=== PATIENT | male | born 1955 | race Caucasian/White ===

== ENCOUNTER → 2017-06-23 | Outpatient (CLI) | payer OTHER, BC ==
[~2017-06-23] MED LIST: ASPI81TA21 PO; GADAVIST IV PRN; LSN20 PO; PRVC/40 PO
--- NOTE | 2017-06-23 11:00 | DIAGNOSTIC IMAGING REPORT ---
FLUOROSCOPIC-GUIDED LEFT SHOULDER ARTHROGRAM PRE-MRI CLINICAL HISTORY: Left shoulder pain COMPARISON STUDY: Conventional radiographic study dated 02/15/2014 FINDINGS: A timeout was performed. The risks the procedure were explained the patient informed consent was obtained. The patient was prepped and draped in sterile fashion. The skin was anesthetized 1% lidocaine. Under fluoroscopic guidance, 22-gauge spinal needle was introduced into the joint capsule. A mixture of Optiray 300 and lidocaine was instilled into the joint. Contrast entered the subacromial bursa indicative of a full-thickness rotator cuff tear. The patient was sent to the MRI suite for further evaluation. 17 seconds of fluoroscopic time was utilized. A single fluoroscopic spot image was acquired. IMPRESSION: 1. Successful fluoroscopically guided left shoulder arthrogram pre-MRI 2. Full-thickness rotator cuff tear Electronically signed by: Neville Bravo M.D. 06/23/2017 10:59 AM Dictated Date/Time: 06/23/2017 10:57 AM
--- NOTE | 2017-06-23 11:30 | DIAGNOSTIC IMAGING REPORT ---
L UPPER EXT JOINT WITH CLINICAL HISTORY: SHOULDER PAIN pain TECHNIQUE: Multi axial MRI acquisition post shoulder arthrography COMPARISON STUDY: None FINDINGS: Findings of considerable degenerative change of the acromioclavicular joint. Inferior osteophytic formation from the distal clavicle as well as inferior acromion. Considerable degenerative change lateral aspect humeral head. Slight superior migration of the humeral head in relation to the glenoid. There is a full-thickness tear of the supraspinatus tendon with evidence for musculotendinous retraction. This retraction is 3 cm. Findings of mild infraspinatus as well as subscapularis tendinitis. Small partial tear superior subscapularis tendon. No evidence for full-thickness tear. Biceps tendon is displaced somewhat medially in reference to the bicipital groove at its superior extent. The glenoid labrum is intact. IMPRESSION: 1. Full-thickness tear supraspinatus tendon with 3 cm of musculotendinous retraction. 2. Degenerative and hypertrophic change of the acromioclavicular and acromion with moderate inferior osteophytic formation. This most likely created a component of impingement with an intact supraspinatus tendon. 3. Moderate subscapularis and infraspinatus tendinitis with a small partial tear of the superior subscapularis margin. 4. Considerable degenerative change lateral aspect humeral head. 5. Partial medial subluxation of the biceps tendon in relation to the bicipital groove. The above report was generated using voice recognition software. It may contain grammatical, syntax or spelling errors. Electronically signed by: Brent Bourgeois M.D. 06/23/2017 11:28 AM Dictated Date/Time: 06/23/2017 11:21 AM
== END | disposition home or self-care (01) ==
LOC: C.MRIBC 09:28
PROVIDERS: ATTEND Physician Assistant
DX: M25.512 Pain in left shoulder (principal)

== ENCOUNTER → 2017-07-18 | Day surgery (SDC) | payer OTHER, BC ==
[2017-07-17 11:52] VITALS: Ht 188 cm; Wt 88.6 kg
[~2017-07-18] VITALS: Ht 188 cm; Wt 88.6 kg
[~2017-07-18] MED LIST changes: +ASPI-319 PO; -ASPI81TA21 PO; +ATROPINE SULFATE 0.1 MG/ML 5ML SYR IV PRN; +CEFAZOLIN 2000MG IV PUSH 15 ML IV SCH; +DEXAMETHASONE SOD INJ 4 MG/ML VIAL ONE; +EpHEDrine SULFATE 50MG/5ML SYR ONE; +EpHEDrine SULFATE INJ 50 MG/ML AMP IV PRN; +EpINEphrine INJ 1MG/ML AMP 1 MG/ML AMP ONE; +FENTANYL CITRATE INJ 50 MCG/1 ML 2 ML VIAL IV PRN; +FENTANYL CITRATE INJ 50 MCG/1 ML 2 ML VIAL ONE; -GADAVIST IV PRN; +KETOROLAC TROMETHAMINE 30 MG/ML VIAL IV. PRN; +LACTATED RINGER'S 1000ML 1,000 ML IV SCH; +LEVOFLOXACIN 500 MG TAB ONE; +LEVOFLOXACIN 500 MG TAB PO SCH; +LIDOCAINE HCL 2% 2 ML VIAL (20MG/ML) ONE; +MIDAZOLAM HCL 1 MG/ML 2ML VIAL ONE; +MULT-506 PO; +ONDANSETRON INJ 2 MG/ML 2 ML VIAL IV PRN; +ONDANSETRON INJ 2 MG/ML 2 ML VIAL ONE; +OXYCODONE/ACETAMINOPHEN 5-325 TAB PO PRN; +PROPOFOL IV EMULSION 10 MG/ML 20 ML VIAL IV ONE; +ROPIVACAINE 0.5% 5 MG/ML 30 ML VIAL ONE; +SODIUM CHLORIDE 0.9% 1000ML 1,000 ML IV SCH
--- NOTE | 2017-07-18 07:42 | History & Physical Bridge Note ---
H&P Re-Evaluation Bridge Note: I have examined the patient, reviewed the History & Physical and in the interval since the performance of the History & Physical I have noted the following changes of clinical significance:consent obtained. No changes noted
--- NOTE | 2017-07-18 07:43 | Discharge Instructions ---
Discharge Instructions Date of Service Jul 18, 2017. Visit Reason for Visit: Left Shoulder Rotator Cuff Tear Discharge Discharge Diagnosis / Problem: same Discharge Goals Goal(s): Decrease discomfort, Improve function, Increase independence Medications Stopped Medications Name(s): na Restart Stopped Medication(s): use scripts as directed. Activity Recommendations Activity Limitations: as noted below Lifting Limitations: until after follow-up appointment Exercise/Sports Limitations: until after follow-up appointment May Resume Sexual Activity: after follow-up appointment Shower/Bathe: keep incision dry Anesthesia . Post Anesthesia Instructions: If you have had General Anesthesia or IV Sedation: * Do not drive today. * Resume driving when surgeon permits. * Do not make important decisions or sign legal documents today. * Call surgeon for: 1. Temperature elevations greater than 101 degrees F. 2. Uncontrollable pain. 3. Excessive bleeding. 4. Persistent nausea and vomiting. 5. Medication intolerance (nausea, vomiting or rash). * For nausea and vomiting use only clear liquids such as: tea, soda, bouillon until nausea subsides, then gradually increase diet as tolerated. * If you have any concerns or questions, call your surgeon's office. If physician is unavailable and it is an emergency, call 911 or go to the nearest emergency room. . Instructions / Follow-Up Instructions / Follow-Up The following are instructions to follow after "Shoulder Surgery" including, Acromioplasty, Rotator Cuff Repair and Instability Surgery ACTIVITY RECOMMENDATIONS: * Minimize activity after surgery. * No excessive walking, jogging, sports or laboring. * Return to activity is individualized depending on the patient and type of surgery. * Driving is not permitted until at least your first post operative visit. Please ask your doctor when it is safe to resume driving. * Expect increased discomfort with increased activity. Continue to ice the shoulder as needed. SCHOOL/WORK RECOMMENDATIONS: * You may return to sedentary work or school when you are feeling more comfortable. This is usually 3-7 days after surgery. MEDICATIONS: * You will have a prescription for pain medication and an anti-inflammatory medication after surgery. * Use the pain medication for severe pain and the anti-inflammatory for less severe pain. Once the pain medication has run out, try to use the anti-inflammatory medication. If this is not effective, contact the office for assistance. * The pain medication may cause nausea, constipation and drowsiness. You should see how they affect you before driving or similar activity. * The anti-inflammatory medication may cause stomach upset and bleeding. If this occurs let your doctor know immediately . * Take a stool softener like Colace or a laxative like Senokot to prevent constipation. DIET: * Resume previous diet. SPECIAL CARE: ICE: You have the option of an ice cooler, gel packs or ice bags. * If you have an ice cooler, refer to the instructions for that device. The ice cooler may be used continuously. * If you do not have an ice cooler, you will need to use ice bags or gel packs. Do not apply ice directly to the skin. Use a thin dressing or neno shirt between the skin and ice bag. Apply ice for 20-30 minutes and repeat every 2-4 hours. This is especially important for the first 7-10 days after surgery. Once the pain improves, use ice as needed. ELEVATION: * You may be more comfortable sleeping in an upright position. Use the sling to elevate your arm. DRESSING: * Your dressing will be changed at your first therapy appointment approximately 4-5 days after surgery. Band-aids, tape strips or gauze may be applied. You may then change your dressing daily. * Reapply dressing followed by the EBIce cooling pad (if chosen) and then the sling. * Always wash your hands prior to touching the incision area. * Once the stitches are removed, you may leave the wound open to air or cover with gauze. * Expect some bloody drainage for the first few days after surgery. * Leave the tape strips, if present, in place for 5-7 days. * Band-aids and gauze may be changed daily. * There may be a gauze pad in your armpit area. This can be changed daily or replaced by a dry washcloth. SLING/BRACE: * You will need to use a sling or brace after surgery. The length of time the sling is used is dependent upon the type of surgery performed. * Arthroscopic Acromioplasty requires use of the sling for 2-4 weeks for comfort. * Labral procedures and Rotator Cuff Repairs require use of the sling for a longer period of time. Please check with your doctor prior to discontinuing the sling. BATHING: * You may shower or sponge-bathe immediately after surgery. The post operative shoulder dressing is mostly water-tight. You may shower right over this dressing, but be reasonably careful not to get the gauze or incision wet. * Once the dressing has been changed on the fourth or fifth day after surgery, you may shower and get the incision wet. * Wash with regular soap and water. * Do not bathe (submerge the incision), soak, swim or use a hot tub until the incision is completely healed over with normal skin and the doctor has given the OK to proceed. * There is no need to apply any ointments, powders or salves to your incision. * Do not apply alcohol or hydrogen peroxide directly to the incision. * Diluted peroxide (50:50 mixture with sterile saline) may be used to clean dried blood from around the incision area. THERAPY: * You will begin therapy four or five days after surgery. * Organized therapy with the therapist is important for the first 2-4 months after surgery depending on the type of procedure. During that time you will attend therapy 1-3 times per week. * You will also need to do daily exercises for range of motion and strength as instructed. * Patients who have a Capsular Shift Procedure will need to abide by temporary range of motion limitations. * Patients having Rotator Cuff Surgery are not allowed to actively lift their arms until 4-6 weeks after surgery. * Please check with your doctor regarding appropriate motion restrictions. FOLLOW UP VISIT: * If not already scheduled, please call the office at to schedule a follow-up appointment for 10 days after surgery and monthly thereafter. Diet Recommendations Recommended Home Diet: resume previous diet Procedures Procedures Performed: see op note Pending Studies Studies pending at discharge: no Medical Emergencies . Who to Call and When: Medical Emergencies: If at any time you feel your situation is an emergency, please call 911 immediately. . Non-Emergent Contact Non-Emergency issues call your: Specialist Call Non-Emergent contact if: temperature is above 101.5, wound has increased drainage, wound has increased redness, wound has increased pain . . "Provider Documentation" section prepared by Young Tapia. .
--- NOTE | 2017-07-18 10:29 | [facility] Post Operative Brief Note ---
Immediate Operative Summary Operative Date Jul 18, 2017. Pre-Operative Diagnosis Left Shoulder Masive Rotator Cuff Tear/biceps tendonopathy Post-Operative Diagnosis Same Procedure(s) Performed Left Shoulder Arthroscopy,Massive Rotator Cuff Repair, Biceps Tenotomy Surgeon Dr. Tapia Tiler'S Assistant Surgeon(s) Davin Rose PA-C Estimated Blood Loss Trace Findings Consistent with Post-Op Diagnosis Fluids (cc crystalloids) 900cc Specimens None Drains None Anesthesia Type General Regional Complication(s) none Disposition Accompanied Pt To Recovery: no Disposition: Recovery Room / PACU
--- NOTE | 2017-07-18 10:52 | [facility] Operative Report ---
Operative Report Operative Date Jul 18, 2017. Pre-Operative Diagnosis Left Shoulder Masive Rotator Cuff Tear/biceps tendonopathy Post-Operative Diagnosis Left shoulder same Procedure(s) Performed Left Shoulder Arthroscopy,Massive Rotator Cuff Repair, Biceps Tenotomy Surgeon Dr. Tapia Discovery Guide Surgeon(s) Davin Rose PA-C Estimated Blood Loss Trace Findings Left shoulder rotator cuff tear, biceps tendinopathy Fluids 900cc Specimens None Drains None Anesthesia Type General Regional Complication(s) none Disposition no Recovery Room / PACU Indications This 62-year-old white male presented to the office with complaints of left shoulder pain and loss of motion after injuring himself . Preoperative imaging was obtained. He elected to proceed with surgical intervention after being educated about potential risks and outcomes. Description of Procedure Patient was administered a regional block and then taken to the operating room where he was given general anesthesia. He was prepped and draped in usual sterile fashion. Please see Dr. Tapia's operative report for specifics of the procedure. I was present for the entire case from initial patient positioning through final wound closure. Assistance was provided in patient positioning, arthroscopy, anchor placement, and final wound closure. Patient was taken to the recovery room in satisfactory condition. I attest to the content of the Intraoperative Record and any orders documented therein. Any exceptions are noted below.
--- NOTE | 2017-07-18 11:05 | OPERATIVE REPORT ---
DATE OF OPERATION: 07/18/2017 SURGEON: Young Tapia MD DRILL OPERATOR: Larry Rose PA-C. No resident or fellow available. PREOPERATIVE DIAGNOSES: Massive rotator cuff tear, left upper extremity with chronic impingement syndrome, biceps tendinopathy. POSTOPERATIVE DIAGNOSES: Same. OPERATION PERFORMED: 1. Exam under anesthesia. 2. Diagnostic arthroscopy. 3. Arthroscopic biceps tenotomy. 4. Arthroscopic massive rotator cuff repair, double row technique. PERIOPERATIVE SITUATION: Medically cleared male with intractable shoulder pain and inability to lift his arm following an injury. Physical exam, x-ray and MRI scan consistent with acute on chronic changes. He has a massive cuff tear with retraction. Options were discussed with him. He wanted to proceed with surgery. In addition, he also had an option of superior capsule reconstruction if the tendon was not repairable. DESCRIPTION OF PROCEDURE: The patient appropriately identified, site verified, consent verified, 2 grams of Ancef confirmed as being given. The shoulder was examined revealing no instability. He was then carefully placed in a beach chair position and left upper extremity prepped and draped in usual routine fashion. A posterior portal made 2 cm medial and inferior to posterolateral tip of the acromion and anterior portal made just off the edge of the AC joint. The joint was entered. There was a massive cuff tear. The areas were debrided. The labrum was debrided. The biceps tendon was very tendinopathic and unstable what was released. This was the long head. The short head was left alone. The glenohumeral joint was relatively healthy. The subacromial space was then entered. The superficial bursa and the subacromial space was then debrided. The tendon was then identified and mobilized. Double row technique was utilized and just off the articular edge. Two 4.75 anchors with tapes were placed. They were placed percutaneously. They were then left in the holes. Additional anchors were then placed on the lateral footprint. These were 4.75 anchors. One stitch from each area was then placed. This repaired about 80% of the area. One of the centralizing stitches of 4.75 anchors was also used to augment the repair anteriorly. Once this was done, the scope was placed anteriorly and uncovered area anteriorly was noticed. As a result, another 4.75 anchor was placed. There were 2 loops sutures and this covered things nicely. A good repair was obtained with the arm at the side, slightly in the most medial aspect of the footprint. It did not leave any cartilage uncovered. The arm was then placed through range of motion, and there was no retraction of the cuff. The procedure was then terminated. All instruments and fluid removed. The 3 portals were closed as well as the percutaneous sites with nylon. The wound was then dressed appropriately with Xeroform, 4 x 4 gauze, ABD pads and Ioban dressing and a shoulder immobilizer was placed. Estimated blood loss was trace. Crystalloid 900 mL. No DVT prophylaxis. Overall prognosis for the shoulder is guarded based on the size of tear, chronicity of tear, and use of tobacco, etc. I attest to the content of the Intraoperative Record and any orders documented therein. Any exception s are noted below.
[2017-07-18 11:26] VITALS: TEMP 36.2
[2017-07-18 12:10] VITALS: BP 151/79; PULSE 68; O2SAT 95
--- NOTE | 2017-07-18 12:23 | Anesthesia Progress Nt - [facility] ---
Anesthesia Post Op Note Date & Time Jul 18, 2017 at 12:23 Vital Signs Pain Intensity: 0 Vital Signs Past 12 Hours Date Time Temp Pulse Resp B/P (MAP) Pulse Ox O2 Delivery O2 Flow Rate FiO2 07/18/17 12:10 68 18 151/79 (103) 95 Room Air 07/18/17 11:26 36.2 65 18 156/73 (100) 94 Room Air 07/18/17 11:16 155/88 07/18/17 11:14 70 24 07/18/17 11:14 36.4 67 20 155/88 94 Room Air 07/18/17 11:14 68 24 94 07/18/17 11:11 147/81 07/18/17 11:09 71 27 07/18/17 11:09 71 27 95 07/18/17 11:06 139/75 07/18/17 11:04 75 21 97 07/18/17 11:04 74 21 07/18/17 11:01 158/88 07/18/17 10:59 82 19 07/18/17 10:59 83 19 97 07/18/17 10:56 146/78 07/18/17 10:54 69 20 07/18/17 10:54 69 20 100 07/18/17 10:51 150/76 07/18/17 10:49 65 15 98 07/18/17 10:49 64 15 07/18/17 10:45 36.1 64 16 148/73 98 Mask 6 07/18/17 10:45 148/73 07/18/17 09:19 0 07/18/17 09:18 65 07/18/17 09:18 65 58 97 07/18/17 09:16 146/82 07/18/17 09:13 62 24 97 07/18/17 09:13 62 07/18/17 09:11 137/79 07/18/17 09:08 61 07/18/17 09:08 61 40 97 07/18/17 09:06 137/78 07/18/17 09:03 58 21 98 07/18/17 09:03 59 07/18/17 09:01 139/81 07/18/17 08:58 62 07/18/17 08:58 62 12 98 07/18/17 08:57 149/87 07/18/17 07:48 36.6 72 20 136/70 (92) 94 Room Air Notes Mental Status: alert / awake / arousable, participated in evaluation Pt Amnestic to Procedure: Yes Nausea / Vomiting: adequately controlled Pain: adequately controlled Airway Patency, RR, SpO2: stable & adequate BP & HR: stable & adequate Hydration State: stable & adequate Anesthetic Complications: no major complications apparent The patient was instructed to take his lisinopril when he goes home. He understands and agrees. He feels well on discharge with no complaints.
== END | disposition home or self-care (01) ==
LOC: X.SURG 07:34
PROVIDERS: ATTEND Physical Medicine & Rehabilitation Sports Medicine
DX: S46.012A Strain of muscle(s) and tendon(s) of the rotator cuff of left shoulder, initial encounter (principal); X58.XXXA Exposure to other specified factors, initial encounter; M75.42 Impingement syndrome of left shoulder; M75.22 Bicipital tendinitis, left shoulder; Z79.82 Long term (current) use of aspirin; Z79.899 Other long term (current) drug therapy; I10 Essential (primary) hypertension

== ENCOUNTER 2018-10-21 09:06 | Inpatient (IN) ==
[2018-10-21] MEDS ORDERED: HYDROmorphone INJ 1 MG/ML SYRINGE IV PRN (09:30)
[2018-10-21] MEDS ORDERED: ONDANSETRON INJ 2 MG/ML 2 ML VIAL IV STA (09:30)
[2018-10-21] MEDS ORDERED: KETOROLAC (**for OR use only**) 30 MG/ML VIAL IV ONE (09:30)
[2018-10-21 09:35] LABS: Hematocrit (blood only) 47.5 % (42-52); Hemoglobin 17.6 g/dL (14.0-18.0); Immature Granulocytes # (auto) 0.03 K/uL (0.00-0.02); Immature Granulocytes % (auto) 0.2 %; Lymphocytes # (auto) 1.44 K/uL (1.2-3.4); Lymphocytes % (auto) 10.6 %; Mean Corpuscular Hgb Conc 37.1 g/dL (32-36); Mean Corpuscular Volume 90.6 fL (80-100); Mean Platelet Volume 9.5 fL (7.4-10.4); Monocytes # (auto) 0.47 K/uL (0.11-0.59); Monocytes % (auto) 3.5 %; Neutrophils # (auto) 11.65 K/uL (1.4-6.5); Neutrophils % (auto) 85.7 %; Platelet Count 210 K/uL (130-400); RDW Coefficient of Variation 12.9 % (11.5-14.5); RDW Standard Deviation 42.8 fL (36.4-46.3); Red Blood Count 5.24 M/uL (4.7-6.1); White Blood Count 13.59 K/uL (4.8-10.8)
[2018-10-21] MEDS ORDERED: KETOROLAC 30 MG/ML VIAL ONE (09:37)
[2018-10-21 09:41] LABS: BUN Creatinine Ratio 25.8 (10-20); Blood Urea Nitrogen 25 mg/dl (7-18); Carbon Dioxide 24 mmol/L (21-32); Chloride 104 mmol/L (98-107); Est GFR (African American) 95.8; Est GFR (Non-African American) 82.6; Glucose 124 mg/dl (70-99); Sodium 136 mmol/L (136-145)
--- NOTE | 2018-10-21 11:23 | Magnetic Resonance Report ---
LUMBAR SPINE MRI HISTORY: Pt c/o low back pain TECHNIQUE: Multiplanar multisequence MRI of the lumbar spine was performed without the use of contras t. COMPARISON: None. FINDINGS: For the purpose of the report the L5-S1 disc space will be located on axial image 23 of 25. No fracture or subluxation. The conus terminates at the L1 level. Mild facet degenerative changes thr oughout the lumbar spine. 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 Mild edema within the distal l eft erector spinae muscles at the L5-S1 level. This could be due to the adjacent facet degenerative c hange or a muscular strain. Small focus of edema within the posterior superior endplate of L4 and L5. This is likely due to the adjacent degenerative change. L1-L2: No significant central canal or neural foraminal narrowing. L2-L3: No significant central canal or neural foraminal narrowing. L3-L4: There is a small central focal central disc protrusion demonstrating mild inferior subligament ous migration. This does not result in significant central canal or neural foraminal narrowing. L4-L5: Small focal central annular tear without significant central canal or neural foraminal narrowi ng. L5-S1: There is a central/left paracentral focal disc protrusion which abuts and slightly displaces t he transiting left S1 nerve root. This may also abut but does not displace the transiting right S1 ne rve root. This measures 16 x 6 mm. No significant central canal narrowing. There is mild left-sided n eural foraminal narrowing. IMPRESSION: 1. A small to moderate central/left paracentral focal disc protrusion at L5-S1 which abuts the bilate ral transiting S1 nerve roots and slightly displaces the left S1 nerve root. 2. Small annular tears/protrusions also seen at L3-L4 and L4-L5 without significant central canal or neural foraminal narrowing. Electronically signed by: Teofilo Overton M.D. 10/21/2018 11:22 AM
[2018-10-21] MEDS ORDERED: MoRPHine SULFATE 4 MG/ML 1 ML CARP\\VIAL IV PRN (12:32)
--- NOTE | 2018-10-21 12:42 | XRay Report ---
SINGLE VIEW CHEST CLINICAL HISTORY: Low back pain. FINDINGS: 2 AP, portable, upright chest radiographs are compared to study dated 10/26/2012. The examina tion is degraded by portable technique and patient rotation. The heart is enlarged and there is ath erosclerotic calcification of the thoracic aorta. The pulmonary vasculature is noncongested. The lung s and pleural spaces are clear. No pneumothorax is seen. The skeletal structures are osteopenic. The bony thorax is grossly intact. Atherosclerotic calcification is noted in the carotid bulbs. IMPRESSION: Cardiomegaly with no active disease in the chest. Electronically signed by: Eh Lincoln M.D. 10/21/2018 12:41 PM
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
[2018-10-21] MEDS ORDERED: ACETAMINOPHEN 325 MG TAB PO PRN (13:37)
[2018-10-21] MEDS ORDERED: ONDANSETRON INJ 2 MG/ML 2 ML VIAL IV PRN (13:37)
[2018-10-21] MEDS ORDERED: POLYETHYLENE (MIRALAX) 17 GM PACK PO PRN (13:37)
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
[2018-10-21] MEDS: AMITRIPTYLINE HCL 25 MG TAB PO SCH (20:17)
[2018-10-22 07:08] LABS: Prothrombin Time 10.5 Seconds (9.0-12.0)
[2018-10-22 07:29] LABS: Albumin Level 3.3 gm/dl (3.4-5.0); BUN Creatinine Ratio 33.3 (10-20); Calcium 8.5 mg/dl (8.5-10.1); Creatinine Clr Calc Pharmacy 98.4 ml/min; Est GFR (Non-African American) 90.6; Potassium 3.8 mmol/L (3.5-5.1)
[2018-10-22 07:32] LABS: Albumin Globulin Ratio 1.1 (0.9-2); Globulin 3.1 gm/dl (2.5-4.0); Total Protein 6.4 gm/dl (6.4-8.2)
[2018-10-22] MEDS ORDERED: TRAMADOL HCL 50 MG TABLET PO PRN (08:14)
[2018-10-22] MEDS ORDERED: methylPREDNISolone 4 MG TAB, 6 DAY TAPER PO SCH (08:15)
[2018-10-22] MEDS: LISINOPRIL 20 MG TAB PO SCH (08:52)
[2018-10-22] MEDS: hydroCHLOROthiazide 25 MG TAB PO SCH (08:52)
[2018-10-22] MEDS: methylPREDNISolone 4 MG TAB PO SCH ×4 (09:44→21:08)
[2018-10-22] MEDS: BACLOFEN 10 MG TAB PO SCH ×3 (09:44→21:09)
[2018-10-22] MEDS: KETOROLAC TROMETHAMINE 15 MG/ML VIAL IV SCH ×4 (09:45→21:10)
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
[2018-10-22] MEDS: PRAVASTATIN SOD 40 MG TAB PO SCH (10:27)
--- NOTE | 2018-10-22 10:59 | Consultation Report ---
DATE OF CONSULTATION: 10/22/2018 CHIEF COMPLAINT: Back and lower extremity difficulty. Working diagnosis of herniated disc lumbar spine at L5-S1, which I think is appropriate diagnosis. The modifier would be the fact that it is a fairly small disc herniation at L5-S1. HISTORY OF PRESENT ILLNESS: He came to the Emergency Room yesterday, intractable pain evidently was quite miserable. He was graciously admitted to the medical service. I am seeing him in consultation and I have also consulted pain management. PAST MEDICAL HISTORY: Positive for degenerative joint disease, arthritis, hernia, hypertension, hyperlipidemia. PAST SURGICAL HISTORY: Rotator cuff surgery, hernia repair. ALLERGIES: Negative. FAMILY HISTORY: Father and mother , brothers are healthy. MEDICATIONS: Include Lipitor, aspirin, hydrochlorothiazide, lisinopril. SOCIAL HISTORY: No alcohol. 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 Moderate tobacco, mostly cigars. REVIEW OF SYSTEMS: He denies any blurred vision, double vision, tinnitus or vertigo. Denies any chest pain, palpitations. Denies nausea, vomiting or bowel and bladder incontinence. OBJECTIVE: GENERAL: He is alert, oriented, pleasant, communicative. VITAL SIGNS: Temperature of 36.4, pulse regular at 60, respiratory rate 16, blood pressure slightly elevated, pulse ox 96. Electrolytes appropriate. He is alert, oriented x3. He is in no pain this morning at 7:15 a.m. HEENT: Pupils react to light and accommodation. Ear, nose and throat clear. CHEST: Normal S1, S2. LUNGS: Clear. ABDOMEN: Soft, nontender. MUSCULOSKELETAL: I did not range his lumbar spine. I kept him at bed rest. He has minimal pain at rest here to this morning. NEUROLOGIC: Cranial nerves intact. Facial nerve roots intact, 5/5 motor strength to lower extremities and upper extremities. No deficit. He has minimal pain with straight leg raising, but some on the left hand side, but mild. He has adequate flexion, extension of the hips and knees. Again, no deficit. No atrophy. IMAGES: Reviewed. IMPRESSION: He has a small disc herniation at L5-S1, left. PLAN: I would treat this at least initially with conservative measures. This is a highly likelihood of improving with conservative means, rather than surgical means. It can be argued either way of course. I put an order in for pain management, hopefully they can help the patient out in the short run. I would recommend a combination of some steroids, some Toradol, some gabapentin or narcotics, possibly outpatient injections and hopefully get this quieted down. I anticipate the patient being here for 24-48 hours.
--- NOTE | 2018-10-22 14:55 | Progress Note ---
DATE: 10/22/2018 SUBJECTIVE: He is alert, oriented, seen on rounds this afternoon approximately 2:20 p.m. He is alert, oriented, minimal complaints of pain, up ambulatory. No neurological deficit. He does complain of some significant constipation which has been more concerned and the possibility of left inguinal hernia. ASSESSMENT: Disc herniation, lumbar spine, L5-S1, mild, left-sided inguinal hernia and constipation. PLAN: From an orthopedic spinal standpoint, he is stable for discharge. I would like to get his constipation little more under control. He has seen pain management as an outpatient and I need to see him back in the office in approximately 3-4 weeks.
--- NOTE | 2018-10-22 18:02 | Hospitalist Progress Note ---
Date of Service October 22, 2018 Assessment & Plan (1) Herniated lumbar disc without myelopathy: MRI shows herniated nucleus pulposus at L5-S1 Appreciate input from orthopedics Given conservative management, Pain management consulted, appreciate input Medication adjusted, added as needed muscle relaxant PT OT (2) Intractable low back pain: due to above Pain improved after adjustment of meds, continue to monitor (3) Leukocytosis: Secondary to recent steroid treatment for intractable back pain Chills no sign of infection, will follow CBC (4) HLD (hyperlipidemia): Continue statin (5) HTN (hypertension): BP stable, CODE STATUS: Full code DVT prophylaxis: SCD and teds, early ambulation Disposition: Continue PT OT Depending on patient's functional status improvement possible discharge home with home PT versus rehab Social service consulted for discharge planning Subjective Does not have any back pain when lying in bed, Pain and discomfort with attempting to sit up and walk to the bathroom Follow-up bladder incontinence, no radiation pain Patient input from orthopedics, referral made to pain management Started with Flexeril, pain regimen adjusted Continue PT Physical Exam Physical Exam: GENERAL: No sign of distress, HEENT: Sclera nonicteric, pink-purple bilateral equal reactive to light extraocular muscle intact Normal oral mucosa, neck: No JVD, no thyromegaly, trachea midline Lungs: Clear to auscultate, no wheeze or rales Cardiovascular: Regular S1 and S2, no murmur or gallop, no JVD, no lower extremity edema Abdomen: Soft, nontender, bowel sounds active, no hepatosplenomegaly Extremities: Does not have any weakness, no radiation pain, no hip or joint pain Neuro: No focal neurological deficit, no dysarthria, no facial droop Psych: Alert awake oriented x3: Euthymic Skin: No rash LYMPH NODES: No cervical lymphadenopathy Results & Data Vital Signs (Past 12 Hours) Vital Signs Temp Pulse Pulse Resp BP Pulse Ox 10/22/18 15:04 36.8 C 56 L 18 141/82 H 94 10/22/18 07:56 36.4 C L 52 L 16 162/80 H 92 (1) Leukocytosis Leukocytosis type: unspecified Qualified Code(s): D72.829 - Elevated white b lood cell count, unspecified (2) HTN (hypertension) Hypertension type: unspecified Qualified Code(s): I10 - Essential (primary) hypertension
[2018-10-22] MEDS: AMITRIPTYLINE HCL 25 MG TAB PO SCH (21:08)
[2018-10-23] MEDS: KETOROLAC TROMETHAMINE 15 MG/ML VIAL IV SCH ×2 (03:12→08:57)
[2018-10-23] MEDS ORDERED: methylPREDNISolone 4 MG TAB PO SCH ×2 (07:00→21:00)
[2018-10-23] MEDS: PRAVASTATIN SOD 40 MG TAB PO SCH (08:56)
[2018-10-23] MEDS: hydroCHLOROthiazide 25 MG TAB PO SCH (08:56)
[2018-10-23] MEDS: BACLOFEN 10 MG TAB PO SCH (08:56)
[2018-10-23] MEDS: LISINOPRIL 20 MG TAB PO SCH (08:56)
--- NOTE | 2018-10-23 09:37 | Pain Management Progress Note ---
Date of Service October 23, 2018 Assessment & Plan (1) Myofascial pain: Present on Admission?: Yes (2) Herniated lumbar disc without myelopathy: 1. Patient will continue with current medication regimen without change in recommendations 2. Recommend patient participate in outpatient PT upon discharge 3. We again discussed trigger point injection, but he currently defers due to symptomatic improvement. 4. We again discussed avoidance of offending activities and the importance of participating in PT 5. Patient may follow-up in the outpatient pain clinic with persisting or recurrent symptoms and he verbalized understanding. Will sign off on patient at this time. Thank you for allowing us to participate in the care of Mr. Ordonez. Present on Admission?: Yes Subjective Mr. Ordonez is reporting a significant improvement in the frequency and severity of axial low back pain over the past 24 hours. He is reporting improved ability to move with less pain and discomfort. Reports an occasional sharp, shooting and stabbing pain with certain movements. He was out of bed multiple times yesterday and did participate in physical therapy with walking with a walker. He continues to deny radicular or radiating pain in the lower extremities. Patient is rating his pain at a 0/10 in the supine position, ranging between a 0-2/10 with movement. Patient is eager to be discharged home at this time. Patient has no further constitutional complaints. Plan of care discussed with Dr. Suarez. Pain Assessment Pain Assessment Full Body Front + Back: 1. Left lower lumbar paravertebral Pain scale - at its best (0-10): 0 Pain scale - at its worst (0-10): 2 Physical Exam Physical Exam: General: Patient sleeping upon entering. He was awakened. Speech and thought process appropriate. Mood and affect appropriate. Cognition intact. Back/spine: Patient able to sit up without limitation and no assistance. Minimal exacerbation of discomfort. Nontender over the midline. No focal facet joint tenderness. Minimally tender in the left lower lumbar paravertebral/erector spinae musculature to palpation. Minimal residual myoneural trigger point evidenced on examination. Lower extremity: SLR negative bilaterally. Strength testing 5/5 and equal. Sensation intact without deficits. No significant guarding on today's ex amination. Neurologic: Cranial nerves grossly intact. Ambulation not witnessed.
--- NOTE | 2018-10-23 16:58 | Hospitalist Progress Note ---
Date of Service October 23, 2018 Assessment & Plan (1) Herniated lumbar disc without myelopathy: MRI shows herniated nucleus pulposus at L5-S1 Appreciate input from orthopedics Given conservative management, Pain management consulted, appreciate input Medication adjusted, added as needed muscle relaxant back pain improved significantly with no limitation with movement stable to be discharged home today (2) Intractable low back pain: due to above Pain improved after adjustment of meds, pain denies of any limitation of movement pain 0/10 on back , stable to be dischaged home will be followed with pain management in clinic as needed (3) Leukocytosis: Secondary to recent steroid treatment for intractable back pain Chills no sign of infection, WBC normalized (4) HLD (hyperlipidemia): Continue statin (5) HTN (hypertension): BP stable, CODE STATUS: Full code DVT prophylaxis: SCD and teds, early ambulation Disposition: stable to be discharged home Subjective Mr. Ordonez is reporting a significant improvement in the frequency and severity of axial low back pain over the past 24 hours. He is reporting improved ability to move with less pain and discomfort. Reports an occasional sharp, shooting and stabbing pain with certain movements. He was out of bed multiple times yesterday and did participate in physical therapy with walking with a walker. He continues to deny radicular or radiating pain in the lower extremities. Patient is rating his pain at a 0/10 in the supine position, ranging between a 0-2/10 with movement. Patient is eager to be discharged home at this time. Patient has no further constitutional complaints. Physical Exam Physical Exam: GENERAL: No sign of distress, HEENT: Sclera nonicteric, pink-purple bilateral equal reactive to light extraocular muscle intact Normal oral mucosa, neck: No JVD, no thyromegaly, trachea midline Lungs: Clear to auscultate, no wheeze or rales Cardiovascular: Regular S1 and S2, no murmur or gallop, no JVD, no lower extremity edema Abdomen: Soft, nontender, bowel sounds active, no hepatosplenomegaly Extremities: No rash or deformity, normal joint, Neuro: No focal neurological deficit, no dysarthria, no facial droop Psych: Alert awake oriented x3: Euthymic Skin: No rash LYMPH NODES: No cervical lymphadenopathy Results & Data Vital Signs (Past 12 Hours) Vital Signs Temp Pulse Pulse Resp BP Pulse Ox 10/23/18 10:39 36.5 C 52 L 45 L 17 171/83 H 95 10/23/18 07:14 36.5 C 45 L 17 171/83 H 95 (1) Leukocytosis Leukocytosis type: unspecified Qualified Code(s): D72.829 - Elevated white blood cell count, unspecified (2) HTN (hypertension) Hypertension type: unspecified Qualified Code(s): I10 - Essential (primary) hypertension
[2018-10-24] MEDS ORDERED: methylPREDNISolone 4 MG TAB PO SCH (07:00)
[2018-10-25] MEDS ORDERED: methylPREDNISolone 4 MG TAB PO SCH (07:00)
[2018-10-26] MEDS ORDERED: methylPREDNISolone 4 MG TAB PO SCH (07:00)
[2018-10-27] MEDS ORDERED: methylPREDNISolone 4 MG TAB PO SCH (07:00)
--- NOTE | 2018-10-30 22:00 | Discharge Summary ---
Date of Service 10/23/2018 Admission HPI Per Admitting Provider History of Present Illness 63-year-old male with a past medical history of degenerative joint disease, osteoarthritis, ventral hernia, hypertension, and hyperlipidemia presents the emergency room today after 2 falls at home where he could not get up secondary to severe back pain. An MRI showed a herniated nucleus pulposus L5-S1 and he will be seen by orthopedics. He denies any radiation of the pain down into his legs. 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 Primary Care Provider: Brent Holm MD Principal Diagnosis BACK PAIN /HERNIATED LUMBER DISC Discharge Data Allergies Allergy/AdvReac Type Severity Reaction Status Date / Time No Known Allergies Allergy Mild Unverified 07/18/17 07:44 Consultations 10/21/18 12:12 ED Decision to Admit Stat 10/21/18 17:45 Consult Orthopedic Surgery Routine 10/22/18 07:07 Consult Pain Management Routine Ordered Studies 10/21/18 09:27 MR lumbar spine wo con Stat Hospital Course (1) Herniated lumbar disc without myelopathy: MRI shows herniated nucleus pulposus at L5-S1 Appreciate input from orthopedics Given conservative management, Pain management consulted, appreciate input Medication adjusted, added as needed muscle relaxant back pain improved significantly with no limitation with movement stable to be discharged home today (2) Intractable low back pain: due to above Pain improved after adjustment of meds, pain denies of any limitation of movement pain 0/10 on back , stable to be dischaged home will be followed with pain management in clinic as needed (3) Leukocytosis: Secondary to recent steroid treatment for intractable back pain Chills no sign of infection, WBC normalized (4) HLD (hyperlipidemia): Continue statin (5) HTN (hypertension): BP stable, CODE STATUS: Full code DVT prophylaxis: SCD and teds, early ambulation Disposition: stable to be discharged home Total Time Total Time Spent Total Time Spent (In Minutes): approx 40 mins Total Time Includes: Examination of the Patient, Discharge Planning and Medication Reconciliation Discharge Plan Discharge Items Patient Disposition: Home - Self-Care Reason For Visit: HERNIATED L5S1 DISK, BACK PAIN Discharge Diagnosis: Back pain/herniated lumbar disc Discharge Goals: Decrease discomfort and Therapeutic intervention Activity: As commented below Activity Comment: As tolerated Lifting: Gradually increase as tolerated and No more than 5 pounds Lifting Comment: For 1 week Non-emergency contact: Primary Care Provider Call non-emergency contact if: you have any medication questions, your symptoms worsen and your wound has increased drainage Follow-up/Referrals: John Suarez MD, FIPP [Anesthesiologist] - (please call office for appointment ) Brent Holm MD [Primary Care Provider] - 10/26/18 1:55 pm Junior Munoz DO [Surgeon] - (in 3-4 weeks ) Diet: Regular Addtl Provider Instructions: Hospital follow-up with Dr. Holm on October 26, 2018 at 1:55 PM NEW MEDICATIONS : 1.COMPLETE MEDROL DOSEPAK (TAKE WITH FOOD) 2.MAY TAKE TRAMADOL 50 MG EVERY 8 HOURS NEEDED FOR BREAKTHROUGH PAIN (PLEASE TAKE STOOL SOFTENER: COLACE/MIRALAX TO PREVENT CONSTIPATION CAUSED BY PAIN MEDICATION ) can take over the counter Motrin /Aleve as needed for moderate pain ( take with food ) alternate between heat and cold compression for pain relief 3.TAKE BACLOFEN (MUSCLE RELAXANT (10 MG / 1 TABLET 3 TIMES DAILY CONTINUE PHYSICAL THERAPY AN OUTPATIENT PAIN MANAGEMENT CLINIC FOLLOW-UP WITH DR SUAREZ IN 4 TO 6 WEEKS OR EARLIER IF NEEDED FOR RECURRENCE OF PAIN: YOU MAY GET BENEFIT WITH A TRIGGER POINT injection. ORTHOPEDICS FOLLOW-UP WITH DR. MUNOZ IN APPROXIMATELY 3-4 WEEKS PLEASE CALL OFFICE TO SCHEDULE APPOINTMENT Prescriptions: New baclofen 10 mg Tablet 10 mg PO TID 30 Days Qty: 90 RF: 0 tramadol 50 mg Tablet 50 mg PO Q8 PRN (Reason: PAIN) Qty: 10 RF: 0 methylprednisolone [Medrol (Brennan)] 4 mg tablets,dose pack 4 mg PO UD Qty: 21 RF: 0 Continued pravastatin 40 mg Tablet 40 mg PO DAILY RF: 0 lisinopril 20 mg Tablet 20 mg PO DAILY RF: 0 aspirin [Aspirin Low Dose] 81 mg Tablet,Delayed Release (Dr/Ec) 81 mg PO DAILY RF: 0 Stand-Alone Forms: [employer], Opioid Pain Management Jose/Other Patient Handouts: Tips Cardiovascular Quit Smoking, Quit Smoking Plan, Quit Smoking Get Support, Smoking Health Effects, Smoke Free Benefits Discharge Orders: Discharge Order (Routine); Ordered 10/23/18 Ordered By: Rachel Noriega Admission Data Admit Date/Time: 10/21/18 12:31 Attending Provider: Rachel Noriega Admit Provider: Rachel Noriega Primary Care Provider: Brent Holm Other Providers: Junior Munoz Upendra Service: Medical Other Interventions: Discharge Summary Assessment (RN) Last Done: 10/23/18 10:39 DC Date/Time DO NOT enter until pt leaves facility: 10/23/18 12:22
== END 2018-10-23 12:22 | disposition home or self-care (01) | DRG 552 ==
LOC: ED 09:06 → 3W 12:31
DX: M19.90 Unspecified osteoarthritis, unspecified site; I10 Essential (primary) hypertension; K40.90 Unilateral inguinal hernia, without obstruction or gangrene, not specified as recurrent; F17.290 Nicotine dependence, other tobacco product, uncomplicated; M79.18 Myalgia, other site; K59.00 Constipation, unspecified; Z79.899 Other long term (current) drug therapy; T38.0X5A Adverse effect of glucocorticoids and synthetic analogues, initial encounter; E78.5 Hyperlipidemia, unspecified; M51.27 Other intervertebral disc displacement, lumbosacral region; D72.829 Elevated white blood cell count, unspecified; Z79.82 Long term (current) use of aspirin

== ENCOUNTER 2022-11-13 22:52 | Inpatient (IN) ==
[2022-11-13 23:46] LABS: Basophils # (auto) 0.03 K/uL (0-0.2); Basophils % (auto) 0.3 %; Eosinophils # (auto) 0.08 K/uL (0-0.50); Eosinophils % (auto) 0.7 %; Hematocrit (blood only) 42.7 % (42.0-52.0); Hemoglobin 15.3 g/dl (14.0-18.0); Immature Granulocytes # (auto) 0.03 K/uL (0.01-0.20); Immature Granulocytes % (auto) 0.3 %; Lymphocytes # (auto) 2.67 K/uL (1.2-3.4); Lymphocytes % (auto) 24.5 %; Mean Corpuscular Hemoglobin 31.9 pg (25.0-34.0); Mean Corpuscular Hgb Conc 35.8 g/dL (32.0-36.0); Mean Corpuscular Volume 89.1 fL (80.0-100.0); Mean Platelet Volume 9.6 fL (9.4-12.4); Monocytes # (auto) 0.61 K/uL (0.11-0.59); Monocytes % (auto) 5.6 %; Neutrophils # (auto) 7.48 K/uL (1.40-6.50); Neutrophils % (auto) 68.6 %; Platelet Count 180 K/uL (130-400); RDW Coefficient of Variation 12.9 % (11.5-14.5); RDW Standard Deviation 42.3 fL (36.4-46.3); Red Blood Count 4.79 M/uL (4.70-6.10)
[2022-11-13 23:58] LABS: Albumin Globulin Ratio 1.4 (0.9-2); Albumin Level 4.2 gm/dl (3.4-5.0); BUN Creatinine Ratio 13.9 (10-20); Bilirubin,Total 1.3 mg/dl (0.2-1.0); Calcium 9.5 mg/dl (8.6-10.3); Creatinine Clr Calc Pharmacy 75.1 ml/min; Est GFR (African American) 80.7 ml/min; Est GFR (Non-African American) 69.7 ml/min; Total Protein 7.2 gm/dl (6.0-8.3)
[2022-11-14] MEDS ORDERED: ONDANSETRON INJ 2 MG/ML 2 ML VIAL ONE (00:10)
[2022-11-14] MEDS ORDERED: FAMOTIDINE 20MG IV PUSH 20 MG/5 ML SYR IV STA (00:37)
[2022-11-14] MEDS ORDERED: ACETAMINOPHEN 1,000 MG/100 ML VIAL IV STA (00:37)
[2022-11-14] MEDS: SODIUM CHLORIDE 0.9% 1000ML 1,000 ML IV SCH ×2 (00:55→16:33)
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
[2022-11-14] MEDS ORDERED: MoRPHine SULFATE 2 MG/ML CARP IV STA (02:34)
--- NOTE | 2022-11-14 03:52 | Ultrasound Report ---
Exam(s): US ABDOMEN LIMITED EXAM: US Abdomen Limited, Right Upper Quadrant CLINICAL HISTORY: Epigastric pain. TECHNIQUE: Real-time ultrasound of the right upper quadrant with image documentation. COMPARISON: No relevant prior studies available. FINDINGS: Liver: The liver measures 16.2 cm. There is increase echogenicity of the liver parenchyma. No mass. No intrahepatic bile duct dilation. Gallbladder: Unremarkable. No gallstones. Common bile duct: The common bile duct is normal measuring 0.4 cm. No stones. No dilation. Pancreas: The pancreas is not well visualized due to overlying bowel gas. Right kidney: The right kidney measures 9.7 cm. No stones. No hydronephrosis. IMPRESSION: Fatty infiltration of the liver. Electronically signed by: Courtney Ortega MD 11/14/22 03:51 AM
[2022-11-14 04:01] LABS: Appearance Urine Clear (Clear); Bilirubin Urine Negative (Negative); Blood Urine Negative (Negative); Color Urine Dark Yellow; Glucose Urine UA Negative (Negative); Ketones Urine Trace (Negative); Leukocyte Esterase Urine Negative (Negative); Nitrite Urine Negative (Negative); Protein Urine Negative (Negative); Specific Gravity Urine 1.026 (1.000-1.030); Urobilinogen Urine Negative (Negative); pH Urine 7.5 (4.5-7.5)
[2022-11-14] MEDS ORDERED: OPTIRAY 320 100ml IV ONE (04:01)
[2022-11-14] MEDS ORDERED: ONDANSETRON INJ 2 MG/ML 2 ML VIAL IV STA ×2 (04:10→05:32)
[2022-11-14] MEDS ORDERED: MoRPHine SULFATE 4 MG/ML 1 ML CARP\\VIAL IV STA (04:10)
--- NOTE | 2022-11-14 04:54 | CT Scan Report ---
Exam(s): CT ABDOMEN + PELVIS With Contrast IV Amt: 93 ML OPTIRAY 320 EXAM: CT Abdomen and Pelvis With Intravenous Contrast CLINICAL HISTORY: Abdominal pain. TECHNIQUE: Axial computed tomography images of the abdomen and pelvis with intravenous contrast. Automated exposure control was utilized for the study. A dose lowering technique was utilized adhering to the principles of ALARA. CONTRAST: Patient received 93 ML OPTIRAY 320 of IV contrast COMPARISON: Abdominal ultrasound 11/14/2022. FINDINGS: Lung bases: Unremarkable. No mass. No consolidation. ABDOMEN: Liver: Unremarkable. No mass. Gallbladder and bile ducts: Unremarkable. No calcified stones. No ductal dilation. Pancreas: Unremarkable. No mass. No ductal dilation. Spleen: Unremarkable. No splenomegaly. Adrenals: Unremarkable. No mass. Kidneys and ureters: Unremarkable. No solid mass. No hydronephrosis. Stomach and bowel: Small bowel obstruction with a transition point in the left lower quadrant. A large left inguinal hernia contains a portion of the descending and sigmoid colon which is normal in caliber. There is a spot of nonspecific fluid within the inguinal hernia. No mucosal thickening. PELVIS: Appendix: No findings to suggest acute appendicitis. Bladder: Thickening of the urinary bladder wall may relate to nondistention or cystitis. Reproductive: Unremarkable as visualized. ABDOMEN and PELVIS: Intraperitoneal space: See below. Bones/joints: There are degenerative changes of the spine. No acute fracture. No dislocation. Soft tissues: There is edema of the mesentery which is nonspecific. Vasculature: There is a 3.6 cm infrarenal aortic aneurysm. Mild atherosclerosis. Lymph nodes: Unremarkable. No enlarged lymph nodes. IMPRESSION: 1. Small bowel obstruction with a transition point in the left lower quadrant. 2. There is edema of the mesentery which is nonspecific. 3. A large left inguinal hernia contains a portion of the descending and sigmoid colon which is normal in caliber. There is a small amount of nonspecific fluid within the inguinal hernia. 4. Thickening of the urinary bladder wall may relate to nondistention or cystitis. 5. There is a 3.6 cm infrarenal aortic aneurysm. Electronically signed by: Courtney Ortega MD 11/14/22 04:53 AM
[2022-11-14] MEDS ORDERED: MoRPHine SULFATE 4 MG/ML 1 ML CARP\\VIAL IV PRN (05:08)
[2022-11-14] MEDS ORDERED: HYDROmorphone INJ 0.5 MG/0.5 ML SYR IV STA (05:31)
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
--- NOTE | 2022-11-14 07:06 | XRay Report ---
XR KUB/Abdomen 1 view CLINICAL HISTORY: abd pain TECHNIQUE: 1 view of the abdomen was obtained. Comparison: Comparison is made to chest radiograph 09/15/[address] abdomen pelvis 11/14/2022 FINDINGS: Lung bases are unremarkable. Degenerative changes are seen in the visualized skeleton. There is a dis tended loop of small bowel measuring up to 46 mm. A moderate amount of stool is noted within the larg e bowel. IMPRESSION: Small bowel obstruction is seen. ACT 112: Negative or not required by law. Electronically signed by: Danny Marcelo M.D. 11/14/2022 7:05 AM
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
[2022-11-14 11:21] LABS: BUN Creatinine Ratio 19.1 (10-20); Creatinine Clr Calc Pharmacy 86.2 ml/min; Est GFR (African American) 95.5 ml/min; Est GFR (Non-African American) 82.4 ml/min; Magnesium 1.8 mg/dl (1.7-2.4); Potassium 4.1 mmol/L (3.5-5.1)
[2022-11-14] MEDS: ASPIRIN 81 MG ECTAB PO SCH (11:41)
[2022-11-14] MEDS: FAMOTIDINE 20 MG in SYRINGE 3 ML IV SCH ×2 (11:41→21:52)
[2022-11-14] MEDS: ENOXAPARIN INJ 40 MG/0.4 ML SYR SQ SCH (11:42)
[2022-11-14] MEDS: D5W AND NSS 1,000 ML IV SCH ×2 (11:42→18:47)
[2022-11-14] MEDS: LISINOPRIL/HCTZ 20/25MG 1 TAB PO SCH (11:42)
[2022-11-14] MEDS: ATORVASTATIN 40 MG TAB PO SCH (11:42)
--- NOTE | 2022-11-14 12:45 | Electrocardiogram Report ---
Test Reason : Blood Pressure : / mmHG Vent. Rate : 059 BPM Atrial Rate : 059 BPM P-R Int : 162 ms QRS Dur : 096 ms QT Int : 424 ms P-R-T Axes : 029 031 053 degrees QTc Int : 419 ms Sinus bradycardia Otherwise normal ECG When compared with ECG of 01-SEP-2020 14:52, No significant change was found Confirmed by Quentin Morel ([id number]) on 11/14/2022 12:44:58 PM Referred By: REFERRED SELF Confirmed By:Quentin Morel
[2022-11-14] MEDS: ONDANSETRON INJ 2 MG/ML 2 ML VIAL IV PRN (17:49)
[2022-11-15] MEDS: ONDANSETRON INJ 2 MG/ML 2 ML VIAL IV PRN (02:12)
[2022-11-15] MEDS: HYDROmorphone INJ 0.5 MG/0.5 ML SYR IV PRN (02:13)
[2022-11-15] MEDS: D5W AND NSS 1,000 ML IV SCH ×3 (02:19→18:23)
[2022-11-15 06:10] LABS: Hemoglobin 14.8 g/dl (14.0-18.0); Mean Corpuscular Hemoglobin 31.8 pg (25.0-34.0); Mean Corpuscular Hgb Conc 35.2 g/dL (32.0-36.0); Mean Corpuscular Volume 90.3 fL (80.0-100.0); Mean Platelet Volume 9.7 fL (9.4-12.4); Platelet Count 177 K/uL (130-400); RDW Coefficient of Variation 13.3 % (11.5-14.5); RDW Standard Deviation 44.3 fL (36.4-46.3); Red Blood Count 4.65 M/uL (4.70-6.10); White Blood Count 4.25 K/ul (4.8-10.8)
[2022-11-15 06:22] LABS: Calcium 8.9 mg/dl (8.6-10.3); Creatinine Clr Calc Pharmacy 85.3 ml/min; Est GFR (African American) 94.3 ml/min; Est GFR (Non-African American) 81.3 ml/min; Magnesium 1.9 mg/dl (1.7-2.4); Phosphorus 3.2 mg/dl (2.5-4.9); Potassium 3.8 mmol/L (3.5-5.1)
[2022-11-15 06:39] LABS: Basophils # (auto) 0.01 K/uL (0-0.2); Basophils % (auto) 0.2 %; Immature Granulocytes # (auto) 0.01 K/uL (0.01-0.20); Immature Granulocytes % (auto) 0.2 %; Lymphocytes # (auto) 1.05 K/uL (1.2-3.4); Lymphocytes % (auto) 24.7 %; Monocytes # (auto) 0.76 K/uL (0.11-0.59); Monocytes % (auto) 17.9 %; Neutrophils # (auto) 2.42 K/uL (1.40-6.50)
[2022-11-15] MEDS ORDERED: hydrALAZINE HCL 20 MG/ML VIAL IV PRN (08:40)
[2022-11-15] MEDS ORDERED: hydrALAZINE HCL 20 MG/ML VIAL IV ONE (08:41)
[2022-11-15] MEDS: FAMOTIDINE 20 MG in SYRINGE 3 ML IV SCH ×2 (09:23→20:46)
[2022-11-15] MEDS: ENOXAPARIN INJ 40 MG/0.4 ML SYR SQ SCH (09:24)
[2022-11-15] MEDS: ATORVASTATIN 40 MG TAB PO SCH (09:25)
[2022-11-15] MEDS: ASPIRIN 81 MG ECTAB PO SCH (09:25)
[2022-11-15] MEDS: LISINOPRIL/HCTZ 20/25MG 1 TAB PO SCH (09:26)
--- NOTE | 2022-11-15 10:48 | XRay Report ---
KUB CLINICAL HISTORY: Enteric tube placement. FINDINGS: 2 AP, portable, supine views of the abdomen are compared to abdominal radiographs and CT da kuldip 11/14/2022. An enteric tube has been placed. The tip projects below the diaphragm over the proxima l stomach. There is evidence of persistent small bowel obstruction. Small bowel loops measure up to 5 cm. Moderate fecal retention is noted in the right colon. No evidence of intraperitoneal free air is seen on these supine images. There are no abnormal abdominal calcifications. The skeletal structures are osteopenic and appear intact. Moderate lumbosacral spondylosis is noted. IMPRESSION: 1. An enteric tube has been placed as above. 2. Persistent small bowel obstruction. Electronically signed by: Eh Lincoln M.D. 11/15/2022 10:47 AM
--- NOTE | 2022-11-15 13:43 | Surgery Progress Note ---
Date of Service November 15, 2022 Assessment & Plan (1) Abdominal pain: (2) Small bowel obstruction: Plan: Strict NPO. No meds, no oral intake. Continue NG tube low intermittent suction. May be clamped for ambulation which is encouraged. Reclamped when patient has not ambulating. Patient may have chemical DVT prophylaxis. SCDs to bilateral lower extremities. IV PPI. Admission and Anticipated Discharge Date Admission Date: November 14, 2022 Subjective Patient was seen and examined this AM. He developed nausea, vomiting and an NG tube was inserted. 1 L of dark green succus was immediately drained. Upon my seeing the patient this morning he is comfortable in bed and denies any further nausea. He is also denying abdominal pain saying his abdominal pain is completely resolved. He is not passing flatus. Physical Exam Constitutional: healthy appearing and comfortable; no acute distress and not ill appearing Respiratory: normal respiratory effort; no respiratory distress, no labored breathing and does not use accessory muscles Gastrointestinal (Abdomen): Abdomen is soft, minimally tender to palpation across the lower quadrants. Nondistended. Neurologic: moves all extremities and awake; no focal motor deficits and not confused Results & Data Vital Signs (Past 12 Hours) Vital Signs Temp Pulse Resp BP Pulse Ox O2 Del Method 11/15/22 07:04 36.8 C 78 16 172/80 H 95 Room Air Laboratory Results WBC: 4.25 resolved from 10.9 yesterday. PG Care Time/CCT Total # of Minutes Spent Total Time Spent with Patient: Total time spent is greater than 50% in coordination of care (as documented) at patient's floor/unit and/or counseling patient: Coding [place] [address] SUB INP/OBS CARE 1/25MIN Patient Type Established History Problem Focused Exam Problem Focused Medical Decision Making Low Complexity Diagnoses Abdominal pain R10.9 Small bowel obstruction K56.609
[2022-11-15] MEDS ORDERED: CHLORASEPTIC 1.4% SOLN 180 ML BTL MT PRN (15:17)
--- NOTE | 2022-11-15 17:12 | Hospitalist Progress Note ---
Date of Service November 15, 2022 Assessment & Plan (1) Small bowel obstruction: Plan: 67-year-old male history of hyperlipidemia, AAA, hypertension, GERD, left inguinal hernia presents with abdominal pain and found to have small bowel obstruction. Small bowel obstruction No history of surgery Has large left inguinal hernia but does not seem to be obstructed on the CAT scan NG tube placed 8/22 AM due to ongoing nausea vomiting - patient with much improvement in symptoms General surgery following Strict n.p.o., IVF, pain and nausea control Hyponatremia Na+ 130 --> 132 Likely due to GI loss form vomiting Continue IVF and trend BMP Hypertension Holding lisinopril/HCTZ due to strict n.p.o. IV hydralazine as needed Hyperlipidemia Resume statin when taking p.o. AAA 3.6 cm infrarenal aortic aneurysm Needs outpatient follow-up DVT PROPHYLAXIS SQ Lovenox Dispo-pending, likely DC home once medically stable Patient seen in collaboration with Dr. Florence. Admission and Anticipated Discharge Date Admission Date: November 14, 2022 Supervising Physician Co-Signing Physician Notes Pt seen and examined by me, care coordinated w/ Yany PRIDE, pls refer to her note above for further detail. Pt is currently laying in bed in NAD, NGT is placed w/ significant output noted. Pt is awake, alert, oriented, answers appropriately. Tells me he already had a BM today. Abdominal discomfort much improved. No fever, chills,no chest pain or shortness of breath. lungs are clear to auscultation, heart sounds regular, abdomen is soft, with positive bowel sounds. nontender to palpation. Pt is moving extremities. Continue to support w/ IVF, replace and monitor electrolytes as needed. Continue w/ NGT for now. MD Naman Subjective Follow-up for small bowel obstruction. Patient seen and examined. Due to ongoing nausea and vomiting, NG tube was placed this morning, patient now feeling much better. Abdominal pain resolved, passing flatus. Denies chest pain and shortness of breath. Review of Systems Review of Systems: All systems reviewed & are unremarkable except as noted in Subjective Physical Exam Constitutional: WD/WN, vitals as above Respiratory: normal respiratory effort, lungs clear to auscultation Cardiovascular: Rate/Rhythm: regular rate and regular rhythm Vessels: normal peripheral pulses Extremities: no edema Gastrointestinal (Abdomen): Inspection/Auscultation: normal bowel sounds Percussion/Palpation: abdomen soft; abdomen nontender NG tube in place draining a moderate amount of green drainage Skin: no rashes, warm and dry Neurologic: no focal motor deficits Psychiatric: A+Ox3, euthymic affect Results & Data Results & Data Vital Signs (Past 12 Hours) Vital Signs Temp Pulse Resp BP Pulse Ox O2 Del Method 11/15/22 15:07 37.4 C 68 18 138/69 94 Room Air 11/15/22 07:04 36.8 C 78 16 172/80 H 95 Room Air Laboratory Results Short CBC 11/15/22 Range/Units 05:32 WBC 4.25 L (4.8-10.8) K/ul Hgb 14.8 (14.0-18.0) g/dl Hct 42.0 (42.0-52.0) % Plt Count 177 (130-400) K/uL BMP 11/15/22 05:32 Sodium 132 L Potassium 3.8 Chloride 98 Carbon Dioxide 27 BUN 19 Creatinine 0.95 Glucose 150 H Calcium 8.9 Diagnostic Findings KUB X-Ray 11/15/22 07:55 KUB CLINICAL HISTORY: Enteric tube placement. FINDINGS: 2 AP, portable, supine views of the abdomen are compared to abdominal radiographs and CT dated 11/14/2022. An enteric tube has been placed. The tip projects below the diaphragm over the proximal stomach. There is evidence of persistent small bowel obstruction. Small bowel loops measure up to 5 cm. Moderate fecal retention is noted in the right colon. No evidence of intraperitoneal free air is seen on these supine images. There are no abnormal abdominal calcifications. The skeletal structures are osteopenic and appear intact. Moderate lumbosacral spondylosis is noted. IMPRESSION: 1. An enteric tube has been placed as above. 2. Persistent small bowel obstruction. Electronically signed by: Eh Lincoln M.D. 11/15/2022 10:47 AM
[2022-11-16] MEDS: D5W AND NSS 1,000 ML IV SCH ×3 (02:04→18:14)
[2022-11-16 06:54] LABS: Hematocrit (blood only) 36.9 % (42.0-52.0); Hemoglobin 12.6 g/dl (14.0-18.0); Mean Corpuscular Hemoglobin 31.5 pg (25.0-34.0); Mean Corpuscular Hgb Conc 34.1 g/dL (32.0-36.0); Mean Corpuscular Volume 92.3 fL (80.0-100.0); Mean Platelet Volume 9.7 fL (9.4-12.4); Platelet Count 144 K/uL (130-400); RDW Coefficient of Variation 13.5 % (11.5-14.5); RDW Standard Deviation 46.4 fL (36.4-46.3); White Blood Count 5.74 K/ul (4.8-10.8)
--- NOTE | 2022-11-16 06:59 | Surgery Progress Note ---
Date of Service November 16, 2022 Assessment & Plan (1) Small bowel obstruction: Plan: Progressing well. Seems to be resolving. HD stable, afebrile. May continue with ice chips today. NGT still with dark bilious drainage, will keep for now. 2500cc recorded over the past 24 hour period. Continue with ambulation. Continue to monitor intake output. May continue with chemical DVT ppx. F/U am labs, replete electrolytes as needed. Admission and Anticipated Discharge Date Admission Date: November 14, 2022 Subjective Patient continues without abdominal pain today similar yesterday's exam. Denies N/V. Passing flatus, had some bowel movements yesterday. NGT remains in place, having ice chips, ambulating. Denies chest pains and SOB. Physical Exam Constitutional: healthy appearing and comfortable; no acute distress and not ill appearing Respiratory: normal respiratory effort; no respiratory distress, no labored breathing and does not use accessory muscles Gastrointestinal (Abdomen): Percussion/Palpation: + abdomen tender (mildly central abdomen) and abdomen soft; no guarding and abdomen not rigid Neurologic: moves all extremities; no focal motor deficits and not confused Motor/Sensory: no sensory deficit Results & Data Vital Signs (Past 12 Hours) Vital Signs Temp Pulse Resp BP Pulse Ox O2 Del Method 11/15/22 22:13 36.6 C 64 18 134/68 95 Room Air PG Care Time/CCT Total # of Minutes Spent Total Time Spent with Patient: Total time spent is greater than 50% in coordination of care (as documented) at patient's floor/unit and/or counseling patient: Coding Level of Care Code 46038 SUB INP/OBS CARE 1/25MIN History Expanded Problem Focused Exam Expanded Problem Focused Medical Decision Making Low Complexity Diagnoses Small bowel obstruction K56.609
[2022-11-16 07:31] LABS: BUN Creatinine Ratio 18.6 (10-20); Calcium 8.2 mg/dl (8.6-10.3); Creatinine Clr Calc Pharmacy 83.6 ml/min; Est GFR (African American) 91.9 ml/min; Est GFR (Non-African American) 79.3 ml/min; Magnesium 1.9 mg/dl (1.7-2.4); Phosphorus 1.5 mg/dl (2.5-4.9); Potassium 3.5 mmol/L (3.5-5.1)
[2022-11-16] MEDS: ATORVASTATIN 40 MG TAB PO SCH (08:15)
[2022-11-16] MEDS: ASPIRIN 81 MG ECTAB PO SCH (08:15)
[2022-11-16] MEDS: FAMOTIDINE 20 MG in SYRINGE 3 ML IV SCH ×2 (08:15→20:52)
[2022-11-16] MEDS: LISINOPRIL/HCTZ 20/25MG 1 TAB PO SCH (08:16)
[2022-11-16] MEDS ORDERED: POTASSIUM PHOS 3 MMOL/1 ML INFUSION IV STA (09:24)
[2022-11-16] MEDS ORDERED: POTASSIUM PHOSPHATE 15 MMOL in SODIUM CHLORIDE 0.9% 250 ML IV ONE (09:45)
[2022-11-16] MEDS: ENOXAPARIN INJ 40 MG/0.4 ML SYR SQ SCH (10:06)
--- NOTE | 2022-11-16 14:54 | Hospitalist Progress Note ---
Date of Service November 16, 2022 Assessment & Plan (1) Small bowel obstruction: Plan: 67-year-old male history of hyperlipidemia, AAA, hypertension, GERD, left inguinal hernia presents with abdominal pain and found to have small bowel obstruction. Small bowel obstruction No history of surgery Has large left inguinal hernia but does not seem to be obstructed on the CAT scan NG tube placed 8/22 AM due to ongoing nausea vomiting - patient with much improvement in symptoms +flatus, BM yesterday General surgery following Strict n.p.o., IVF, pain and nausea control Hypophosphatemia Phosphorus 1.5, likely due to GI loss from NG tube Replace, follow electrolytes Hyponatremia Na+ 130 --> 132 --> 138 Likely due to GI loss form vomiting/NG tube Continue IVF and trend BMP Hypertension Holding lisinopril/HCTZ due to strict n.p.o. IV hydralazine as needed Hyperlipidemia Resume statin when taking p.o. AAA 3.6 cm infrarenal aortic aneurysm Needs outpatient follow-up DVT PROPHYLAXIS SQ Lovenox Dispo-pending, likely DC home once medically stable Patient seen in collaboration with Dr. Martinez. Admission and Anticipated Discharge Date Admission Date: November 14, 2022 Supervising Physician Co-Signing Physician Notes delayed entry date of service noted above Attending Addendum: care coordinated with BIGG Hunt please refer to her notes for full details, I agree with her notes patient seen and examined, records reviewed by myself as well diagnoses and plan of care as per BIGG Hunt's notes Joseph Martinez MD Subjective Follow-up for small bowel obstruction. Patient seen and examined. NG tube remains in place. Patient denies nausea, vomiting, abdominal pain. + flatus, BM yesterday. No chest pain or shortness of breath. Physical Exam Constitutional: WD/WN, vitals as above no acute distress Respiratory: normal respiratory effort, lungs clear to auscultation Cardiovascular: Rate/Rhythm: regular rate and regular rhythm Vessels: normal peripheral pulses Extremities: no edema Gastrointestinal (Abdomen): Inspection/Auscultation: + abnormal bowel sounds (Hypoactive) Percussion/Palpation: abdomen soft; abdomen nontender NG in place draining a small amount of green drainage Skin: no rashes, warm and dry Neurologic: no focal motor deficits Psychiatric: A+Ox3, euthymic affect Results & Data Results & Data Vital Signs (Past 12 Hours) Vital Signs Temp Pulse Resp BP Pulse Ox O2 Del Method 11/16/22 07:08 36.5 C 54 L 18 144/67 H 96 Room Air Laboratory Results Short CBC 11/16/22 Range/Units 06:19 WBC 5.74 (4.8-10.8) K/ul Hgb 12.6 L (14.0-18.0) g/dl Hct 36.9 L (42.0-52.0) % Plt Count 144 (130-400) K/uL BMP 11/16/22 06:19 Sodium 138 Potassium 3.5 Chloride 107 Carbon Dioxide 29 BUN 18 Creatinine 0.97 Glucose 106 H Calcium 8.2 L
[2022-11-16] MEDS ORDERED: Nursing to Pharmacy Communication SCH (20:45)
[2022-11-17] MEDS: D5W AND NSS 1,000 ML IV SCH ×2 (02:50→11:08)
[2022-11-17 06:27] LABS: Hematocrit (blood only) 34.1 % (42.0-52.0); Hemoglobin 11.9 g/dl (14.0-18.0); Mean Corpuscular Hemoglobin 31.8 pg (25.0-34.0); Mean Corpuscular Hgb Conc 34.9 g/dL (32.0-36.0); Mean Corpuscular Volume 91.2 fL (80.0-100.0); Mean Platelet Volume 10.1 fL (9.4-12.4); Platelet Count 135 K/uL (130-400); RDW Coefficient of Variation 13.2 % (11.5-14.5); RDW Standard Deviation 44.9 fL (36.4-46.3); Red Blood Count 3.74 M/uL (4.70-6.10); White Blood Count 5.81 K/ul (4.8-10.8)
[2022-11-17 06:42] LABS: BUN Creatinine Ratio 15.2 (10-20); Creatinine Clr Calc Pharmacy 81.9 ml/min; Est GFR (African American) 89.7 ml/min; Est GFR (Non-African American) 77.4 ml/min; Magnesium 1.7 mg/dl (1.7-2.4); Phosphorus 2.3 mg/dl (2.5-4.9); Potassium 3.4 mmol/L (3.5-5.1)
[2022-11-17] MEDS: ENOXAPARIN INJ 40 MG/0.4 ML SYR SQ SCH (09:19)
[2022-11-17] MEDS: ATORVASTATIN 40 MG TAB PO SCH (09:20)
[2022-11-17] MEDS: FAMOTIDINE 20 MG in SYRINGE 3 ML IV SCH ×2 (09:20→20:16)
[2022-11-17] MEDS: ASPIRIN 81 MG ECTAB PO SCH (09:20)
[2022-11-17] MEDS: LISINOPRIL/HCTZ 20/25MG 1 TAB PO SCH (09:20)
--- NOTE | 2022-11-17 12:30 | Surgery Progress Note ---
Date of Service November 17, 2022 Assessment & Plan (1) Small bowel obstruction: Plan: SBO resolving. Patient has remained HD stable, afebrile without leukocytosis. NG tube drainage is becoming maintainer operator. Volume comparisons difficult to use as a measure as the patient has been eating ice chips and drinking water. We will clamp the NG tube today and trial the patient on clear liquids. Continue ambulation. We will follow-up in the a.m. He is on Lovenox for DVT prophylaxis. Admission and Anticipated Discharge Date Admission Date: November 14, 2022 Subjective This patient was seen and examined this AM. He continues to be without abdominal pain. He has continued to have ice chips and drink small amounts of water with the NG tube. Of note the NG tube drainage has lightened and is no longer dark green. He is denying nausea and is passing gas. Physical Exam Constitutional: healthy appearing; not ill appearing, not in distress and not diaphoretic Respiratory: normal respiratory effort; no respiratory distress, no labored breathing and does not use accessory muscles Gastrointestinal (Abdomen): Inspection/Auscultation: abdomen not distended Percussion/Palpation: abdomen soft; abdomen nontender, no guarding and abdomen not rigid Neurologic: awake; no focal motor deficits, not confused and not obtunded Results & Data Vital Signs (Past 12 Hours) Vital Signs Temp Pulse Resp BP Pulse Ox O2 Del Method 11/17/22 07:55 36.8 C 50 L 16 152/74 H 97 Room Air PG Care Time/CCT Total # of Minutes Spent Total Time Spent with Patient: Total time spent is greater than 50% in coordination of care (as documented) at patient's floor/unit and/or counseling patient: Coding Level of Care Code 84837 SUB INP/OBS CARE 25MIN Diagnoses Small bowel obstruction K56.609
--- NOTE | 2022-11-17 12:46 | Surgery Progress Note ---
Date of Service November 17, 2022 Assessment & Plan (1) Small bowel obstruction: Plan: Patient with resolving SBO. HD stable, afebrile, no leukocytosis. Clamp NG tube today. May start clear liquids. Continue ambulation. Patient is on Lovenox for DVT prophylaxis. Admission and Anticipated Discharge Date Admission Date: November 14, 2022 Physical Exam Constitutional: healthy appearing; not ill appearing, not in distress and not diaphoretic Respiratory: normal respiratory effort; no respiratory distress, no labored breathing and does not use accessory muscles Gastrointestinal (Abdomen): Inspection/Auscultation: abdomen not distended Percussion/Palpation: abdomen soft; abdomen nontender, no guarding and abdomen not rigid Neurologic: awake; no focal motor deficits, not confused and not obtunded Results & Data Vital Signs (Past 12 Hours) Vital Signs Temp Pulse Resp BP Pulse Ox O2 Del Method 11/17/22 07:55 36.8 C 50 L 16 152/74 H 97 Room Air PG Care Time/CCT Total # of Minutes Spent Total Time Spent with Patient: Total time spent is greater than 50% in coordination of care (as documented) at patient's floor/unit and/or counseling patient: Coding Level of Care Code 42713 SUB INP/OBS CARE 04/20MIN Diagnoses Small bowel obstruction K56.609
--- NOTE | 2022-11-17 15:59 | Hospitalist Progress Note ---
Date of Service November 17, 2022 Assessment & Plan (1) Small bowel obstruction: Plan: 67-year-old male history of hyperlipidemia, AAA, hypertension, GERD, left inguinal hernia presents with abdominal pain and found to have small bowel obstruction. Small bowel obstruction No history of surgery Has large left inguinal hernia but does not seem to be obstructed on the CAT scan NG tube placed 8/ AM due to ongoing nausea vomiting - patient with much improvement in symptoms +flatus, advanced to clear liquids today with NG clamped, per general surgery Continue ambulation Hypophosphatemia Phosphorus 1.5 --> 2.3, likely due to GI loss from NG tube but now tolerating clears. Replete, monitor labs in AM Replace, follow electrolytes Hyponatremia --> resolved Na+ 130 --> 132 --> 138 --> 139 Likely due to GI loss form vomiting/NG tube Continue IVF and trend BMP Hypertension Holding lisinopril/HCTZ due to strict n.p.o. IV hydralazine as needed Hyperlipidemia Resume statin when taking p.o. AAA 3.6 cm infrarenal aortic aneurysm Needs outpatient follow-up DVT PROPHYLAXIS SQ Lovenox Dispo-pending, likely DC home once medically stable Patient seen in collaboration with Dr. Martinez. Admission and Anticipated Discharge Date Admission Date: November 14, 2022 Supervising Physician Co-Signing Physician Notes delayed entry date of service noted above Attending Addendum: care coordinated with HILDA Guzman please refer to her notes for full details, I agree with her notes patient seen and examined, records reviewed by myself as well diagnoses and plan of care as per HILDA Martinez MD Subjective Seen and examined in 320 in follow up for SBO. Feeling better today, passing more flatus. Trialed clears earlier today per surgery and tolerated without nausea or vomiting so NG clamped. No other new issues overnight. No F/C, lightheadedness, CP, SOB, N/V, abd pain, dysuria. No bowel movement today. Review of Systems Review of Systems: At least ten systems reviewed and negative except as noted in the HPI. Physical Exam Physical Exam: Gen: WD/WN, NAD, lying in bed talking on phone, A&Ox3, + NG tube in place, container with light brown/greenish liquid HEENT: Normocephalic, atraumatic, conjunctivae moist, sclerae anicteric, mucous membranes moist Lung: Clear to Auscultation bilaterally, no wheezes/rales/rhonchi Heart: Regular rate, regular rhythm, no murmurs, rubs, or gallops Abdomen: Soft, NT, ND +BS x 4 Extremities: no edema Skin: Warm, no rash Results & Data Results & Data Vital Signs (Past 12 Hours) Vital Signs Temp Pulse Pulse Resp BP Pulse Ox O2 Del Method 11/17/22 15:25 36.7 C 45 L 16 139/74 96 Room Air 11/17/22 07:55 36.8 C 50 L 16 152/74 H 97 Room Air Laboratory Results Short CBC 11/17/22 Range/Units 05:36 WBC 5.81 (4.8-10.8) K/ul Hgb 11.9 L (14.0-18.0) g/dl Hct 34.1 L (42.0-52.0) % Plt Count 135 (130-400) K/uL BMP 11/17/22 05:36 Sodium 139 Potassium 3.4 L Chloride 111 H Carbon Dioxide 24 BUN 15 Creatinine 0.99 Glucose 112 H Calcium 8.0 L Diagnostic Findings Abdomen Ultrasound 11/14/22 00:37 Exam(s): US ABDOMEN LIMITED EXAM: US Abdomen Limited, Right Upper Quadrant CLINICAL HISTORY: Epigastric pain. TECHNIQUE: Real-time ultrasound of the right upper quadrant with image documentation. COMPARISON: No relevant prior studies available. FINDINGS: Liver: The liver measures 16.2 cm. There is increase echogenicity of the liver parenchyma. No mass. No intrahepatic bile duct dilation. Gallbladder: Unremarkable. No gallstones. Common bile duct: The common bile duct is normal measuring 0.4 cm. No stones. No dilation. Pancreas: The pancreas is not well visualized due to overlying bowel gas. Right kidney: The right kidney measures 9.7 cm. No stones. No hydronephrosis. IMPRESSION: Fatty infiltration of the liver. Electronically signed by: Courtney Ortega MD 11/14/22 03:51 AM KUB X-Ray 11/14/22 00:39 XR KUB/Abdomen 1 view CLINICAL HISTORY: abd pain TECHNIQUE: 1 view of the abdomen was obtained. Comparison: Comparison is made to chest radiograph 09/15/[address] abdomen pelvis 11/14/2022 FINDINGS: Lung bases are unremarkable. Degenerative changes are seen in the visualized skeleton. There is a distended loop of small bowel measuring up to 46 mm. A moderate amount of stool is noted within the large bowel. IMPRESSION: Small bowel obstruction is seen. ACT 112: Negative or not required by law. Electronically signed by: Danny Marcelo M.D. 11/14/2022 7:05 AM Abdomen/Pelvis CT 11/14/22 02:40 Exam(s): CT ABDOMEN + PELVIS With Contrast IV Amt: 93 ML OPTIRAY 320 EXAM: CT Abdomen and Pelvis With Intravenous Contrast CLINICAL HISTORY: Abdominal pain. TECHNIQUE: Axial computed tomography images of the abdomen and pelvis with intravenous contrast. Automated exposure control was utilized for the study. A dose lowering technique was utilized adhering to the principles of ALARA. CONTRAST: Patient received 93 ML OPTIRAY 320 of IV contrast COMPARISON: Abdominal ultrasound 11/14/2022. FINDINGS: Lung bases: Unremarkable. No mass. No consolidation. ABDOMEN: Liver: Unremarkable. No mass. Gallbladder and bile ducts: Unremarkable. No calcified stones. No ductal dilation. Pancreas: Unremarkable. No mass. No ductal dilation. Spleen: Unremarkable. No splenomegaly. Adrenals: Unremarkable. No mass. Kidneys and ureters: Unremarkable. No solid mass. No hydronephrosis. Stomach and bowel: Small bowel obstruction with a transition point in the left lower quadrant. A large left inguinal hernia contains a portion of the descending and sigmoid colon which is normal in caliber. There is a spot of nonspecific fluid within the inguinal hernia. No mucosal thickening. PELVIS: Appendix: No findings to suggest acute appendicitis. Bladder: Thickening of the urinary bladder wall may relate to nondistention or cystitis. Reproductive: Unremarkable as visualized. ABDOMEN and PELVIS: Intraperitoneal space: See below. Bones/joints: There are degenerative changes of the spine. No acute fracture. No dislocation. Soft tissues: There is edema of the mesentery which is nonspecific. Vasculature: There is a 3.6 cm infrarenal aortic aneurysm. Mild atherosclerosis. Lymph nodes: Unremarkable. No enlarged lymph nodes. IMPRESSION: 1. Small bowel obstruction with a transition point in the left lower quadrant. 2. There is edema of the mesentery which is nonspecific. 3. A large left inguinal hernia contains a portion of the descending and sigmoid colon which is normal in caliber. There is a small amount of nonspecific fluid within the inguinal hernia. 4. Thickening of the urinary bladder wall may relate to nondistention or cystitis. 5. There is a 3.6 cm infrarenal aortic aneurysm. Electronically signed by: Courtney Ortega MD 11/14/22 04:53 AM KUB X-Ray 11/15/22 07:55 KUB CLINICAL HISTORY: Enteric tube placement. FINDINGS: 2 AP, portable, supine views of the abdomen are compared to abdominal radiographs and CT dated 11/14/2022. An enteric tube has been placed. The tip projects below the diaphragm over the proximal stomach. There is evidence of persistent small bowel obstruction. Small bowel loops measure up to 5 cm. Moderate fecal retention is noted in the right colon. No evidence of intraperitoneal free air is seen on these supine images. There are no abnormal abdominal calcifications. The skeletal structures are osteopenic and appear intact. Moderate lumbosacral spondylosis is noted. IMPRESSION: 1. An enteric tube has been placed as above. 2. Persistent small bowel obstruction. Electronically signed by: Eh Licnoln M.D. 11/15/2022 10:47 AM
[2022-11-17] MEDS ORDERED: POTASSIUM PHOS 3 MMOL/1 ML INFUSION IV STA (16:08)
[2022-11-17] MEDS ORDERED: POTASSIUM PHOSPHATE 15 MMOL in SODIUM CHLORIDE 0.9% 250 ML IV ONE (16:30)
[2022-11-17] MEDS: HYDROmorphone INJ 0.5 MG/0.5 ML SYR IV PRN (20:15)
--- NOTE | 2022-11-18 07:54 | Surgery Progress Note ---
Date of Service November 18, 2022 Assessment & Plan (1) Small bowel obstruction: Plan SBO resolved. HD stable, afebrile. Remove NG tube today. Start the patient on full liquids. D/C IV fluids if tolerating well. Complete electrolytes as needed. Admission and Anticipated Discharge Date Admission Date: November 14, 2022 Subjective The patient was seen and examined today. Complains of copious amounts of diarrhea, liquid stool. Passing flatus. He HD stable without fevers or chills nausea or vomiting. Tolerated clear liquids yesterday. Residuals were elevated with some bilious drainage so his NG tube was clamped. He has been clamped overnight. This a.m. he continues to deny abdominal pain and nausea. Physical Exam Constitutional: comfortable; no acute distress, not ill appearing and not diaphoretic Respiratory: normal respiratory effort; no respiratory distress, no labored breathing and does not use accessory muscles Gastrointestinal (Abdomen): Inspection/Auscultation: abdomen not distended Percussion/Palpation: abdomen soft; abdomen nontender, no guarding and abdomen not rigid NG tube inspected and is in at more than 70 cm. Likely in the duodenum causing increased residuals of bilious drainage. Neurologic: awake; no focal motor deficits, not confused and not obtunded Results & Data Vital Signs (Past 12 Hours) Vital Signs Temp Pulse Resp BP Pulse Ox O2 Del Method 11/18/22 07:29 36.7 C 53 L 16 166/77 H 95 Room Air 11/17/22 21:42 36.8 C 54 L 18 173/86 H 96 Room Air PG Care Time/CCT Total # of Minutes Spent Total Time Spent with Patient: Total time spent is greater than 50% in coordination of care (as documented) at patient's floor/unit and/or counseling patient: Coding Level of Care Code 48640 SUB INP/OBS CARE 04/20MIN Diagnoses Small bowel obstruction K56.609
[2022-11-18 08:27] LABS: BUN Creatinine Ratio 17.9 (10-20); Calcium 8.1 mg/dl (8.6-10.3); Creatinine Clr Calc Pharmacy 96.5 ml/min; Est GFR (African American) 103.5 ml/min; Est GFR (Non-African American) 89.3 ml/min; Phosphorus 3.2 mg/dl (2.5-4.9); Potassium 3.3 mmol/L (3.5-5.1)
[2022-11-18] MEDS: ATORVASTATIN 40 MG TAB PO SCH (08:55)
[2022-11-18] MEDS: ENOXAPARIN INJ 40 MG/0.4 ML SYR SQ SCH (08:55)
[2022-11-18] MEDS: ASPIRIN 81 MG ECTAB PO SCH (08:55)
[2022-11-18] MEDS: LISINOPRIL/HCTZ 20/25MG 1 TAB PO SCH (08:55)
[2022-11-18] MEDS: FAMOTIDINE 20 MG in SYRINGE 3 ML IV SCH (09:00)
[2022-11-18] MEDS ORDERED: POTASSIUM CHLORIDE CRTAB 20 MEQ TABCR PO STA (10:00)
[2022-11-18] MEDS ORDERED: cephALEXin 500 MG CAP PO SCH (17:00)
--- NOTE | 2022-11-18 17:21 | Discharge Summary ---
Discharge Summary Date of Service November 18, 2022 Notes For Next Care Provider SBO Medication Changes From Visit Keflex 5 d course for possible cellulitis around R AC Admission HPI Per Admitting Provider 67-year-old male history of hyperlipidemia, AAA, hypertension, GERD, left inguinal hernia presents with abdominal pain and found to have small bowel ob struction. Appetite was down at dinner time and then around 9:30 PM started having severe abdominal pain in epigastric and periumbilical region. No radiation. Associate with nausea and vomiting. In the ER had a bowel movement. Denies any bloody stools or black stools. Normal micturition. No fevers. No chest pain or shortness of breath. No cough. No runny nose or sore throat. Still has ongoing abdominal pain. Past medical as mentioned above Past surgical history anoscopy, colonoscopy, right shoulder surgery Social history quit smoking in 2020 smoked half pack a day for 50 y ears.no alcohol use. No drug use Family history mother has diabetes DC hypertension. Father has hypertension. Brother has hypertension Admission Exam Per Admitting Provider General- Not in distress. Head- atraumatic Eyes- PERRL, ENT- oropharynx clear Neck- supple, no JVD, Lungs- clear to auscultation no wheezing r crackles. Heart- regular rhythm; no murmur, no gallop. Abdomen- could not hear bowel sounds, soft, diffuse tenderness with mild guarding, no rigidity no distension Extremities- no pretibial edema, no erythema. Neuro- alert, oriented x 3; PERRL, EOMI; no facial palsy; no dysarthria; non focal. Skin- warm & dry Principal Dx & Hospital Course #1 = Principal Diagnosis (1) Small bowel obstruction: (2) Abdominal pain: (3) Hernia, inguinal, left: (4) HLD (hyperlipidemia): (5) HTN (hypertension): Plan This is a 67-year-old male history of hyperlipidemia, AAA, hypertension, GERD, left inguinal hernia presents with abdominal pain and found to have small bowel obstruction. No history of previous abdominal surgery. Has large left inguinal hernia but does not seem to be obstructed on the CAT scan. NG tube placed 8/22 AM due to ongoing nausea vomiting with significant improvement in symptoms. No passing flatus with diarrhea, tolerating soft foods. Instructed to follow up with GI if diarrhea continues for 1 week. Phosphorus and potassium replaced during admission with GI losses. Repeat BMP with PCP in 1 week. Developed area of redness near R AC following lab draw yesterday. Improving with warm compresses, will continue 5 day course of Keflex at time of discharge for possible cellulitis of antecubital area. Patient comfortable and hemodynamically stable at time of discharge home. Discharge Exam Gen: WD/WN, NAD, lying in bed talking on phone, A&Ox3 HEENT: Normocephalic, atraumatic, conjunctivae moist, sclerae anicteric, mucous membranes moist Lung: Clear to Auscultation bilaterally, no wheezes/rales/rhonchi Heart: Regular rate, regular rhythm, no murmurs, rubs, or gallops Abdomen: Soft, NT, ND +BS x 4 Extremities: + R AC with mild erythema, warm to touch Skin: Warm, no rash Updated Medication List Medication Instructions Recorded Confirmed Type aspirin 81 mg tablet,delayed 81 mg PO QAM 10/21/18 11/19/22 History release (Marta Low Dose Aspirin) atorvastatin 40 mg tablet 40 mg PO QAM 09/15/19 11/19/22 History lisinopril 20 1 tab PO QAM 09/15/19 11/19/22 History mg-hydrochlorothiazide 25 mg tablet aspirin 227 mg-acetaminophen 194 1 tab PO Q6H PRN Headache 09/01/20 11/19/22 History mg-caffeine 33 mg tablet (Vanquish) Hospital Stay Data Consultations 11/14/22 05:07 ED Decision to Admit Stat 11/14/22 09:55 Consult General Surgery Routine Diagnostic Imagining Performed 11/14/22 00:37 US abdomen limited Stat 11/14/22 02:40 CT abd pelvis IV con only Stat Pending Results Patient Have Any Pending Studies at Discharge: No Discharge Instructions Given to Patient (Per Discharging Provider) MEDICATION CHANGES: Cephalexin (antibiotic) four times a day x 5 days for possible cellulitis of R elbow area. SUMMARY OF TEST RESULTS: You were admitted with small bowel obstruction that has resolved. Advanced to soft foods per general surgery. Continue with low fiber diet. Please follow up with GI outpatient if you are still having diarrhea after one week. PENDING TEST RESULTS: None RECOMMENDATIONS FOR FOLLOW-UP: Follow up with PCP as scheduled. Complete antibiotic in its entirety. Continue warm compresses on elbow as needed. Continue medication regimen as scheduled aside from changes noted above. OTHER INSTRUCTIONS: Seek medical attention if you have: * temperature above 101 * chest pain or trouble breathing * abdominal pain, nausea, vomiting * diarrhea, dark stools or bloody stools * any unanswered questions or concerns Call 911 if symptoms are severe. Please take good care of yourself. Call if you have any questions or problems. You can reach a [facility] hospitalist on duty at [facility] 24 hours a day by calling [phone]. Total Time Total Time Spent Total Time Spent (In Minutes): 40 Supervising Physician Co-Signing Physician Notes delayed entry date of service noted above Attending Addendum: care coordinated with HILDA Pratibha Guzman please refer to her notes for full details, I agree with her notes patient seen and examined, records reviewed by myself as well diagnoses and plan of care as per HILDA Martinez MD
== END 2022-11-18 19:00 | disposition home or self-care (01) | DRG 389 ==
LOC: ED 22:52 → EDINP 11-14 05:50 → SUATTDRO 11-14 05:50 → 3E 11-14 19:52
DX: R11.2 Nausea with vomiting, unspecified; K21.9 Gastro-esophageal reflux disease without esophagitis; I10 Essential (primary) hypertension; Z83.3 Family history of diabetes mellitus; L03.115 Cellulitis of right lower limb; E87.1 Hypo-osmolality and hyponatremia; K40.90 Unilateral inguinal hernia, without obstruction or gangrene, not specified as recurrent; Y92.239 Unspecified place in hospital as the place of occurrence of the external cause; Y84.8 Other medical procedures as the cause of abnormal reaction of the patient, or of later complication, without mention of misadventure at the time of the procedure; K56.609 Unspecified intestinal obstruction, unspecified as to partial versus complete obstruction; I71.40 Abdominal aortic aneurysm, without rupture, unspecified; E83.39 Other disorders of phosphorus metabolism; Z79.82 Long term (current) use of aspirin; E78.5 Hyperlipidemia, unspecified; Z87.891 Personal history of nicotine dependence

== ENCOUNTER 2022-11-19 10:52 | Inpatient (IN) ==
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
--- NOTE | 2022-11-19 12:40 | CT Scan Report ---
CT OF THE ABDOMEN AND PELVIS WITHOUT CONTRAST CLINICAL HISTORY: Abdominal pain/vomiting; recent SBO. COMPARISON STUDY: CT of the abdomen and pelvis November 14, 2022 and KUB November 15, 2022. TECHNIQUE: Axial images of the abdomen and pelvis were obtained without IV contrast. Images were revi ewed in the axial, sagittal, and coronal planes. Automated exposure control was utilized for the frank dy. A dose lowering technique was utilized adhering to the principles of ALARA. FINDINGS: Lung bases are unremarkable. No pneumatosis, free air or portal venous gas is present. Eval uation of the abdomen and pelvis is suboptimal on this unenhanced exam. Unenhanced images of the live r, spleen, adrenal glands, kidneys and pancreas are unremarkable. There is no biliary or pancreatic d uctal dilatation. The stomach is moderately distended and fluid-filled. The proximal to mid small bow el is moderately dilated and fluid-filled. Small bowel dilatation is slightly decreased when compared to CT of November 14, 2022. Mesenteric stranding has improved. Transition point is not well visualized on this unenhanced study. A left inguinal hernia contains a portion of the distal descending colon a nd proximal sigmoid colon and trace fluid. This does not result in a bowel obstruction. There is exte nsive aortoiliac atherosclerotic plaque. There is also extensive plaque of the branch vessels. A 3.6 cm infrarenal abdominal aortic aneurysmal is noted. IMPRESSION: 1. Findings consistent with a persistent partial small bowel obstruction. Small bowel dilatation mild ly decreased when compared to CT of November 14, 2022. Moderately distended, fluid-filled stomach. 2. Left inguinal hernia which contains a portion of the colon. This does not result in a bowel obstru ction. 3. Extensive atherosclerotic plaque of the abdominal aorta and branch vessels. 3.6 cm infrarenal abdo lam aortic aneurysm. ACT 112: Negative or not required by law. Electronically signed by: Elmo Wells M.D. 11/19/2022 12:38 PM
[2022-11-19 12:41] LABS: Basophils # (auto) 0.02 K/uL (0.00-0.20); Basophils % (auto) 0.2 %; Eosinophils # (auto) 0.06 K/uL (0.00-0.50); Eosinophils % (auto) 0.6 %; Hemoglobin 14.5 g/dl (14.0-18.0); Immature Granulocytes # (auto) 0.06 K/uL (0.01-0.20); Immature Granulocytes % (auto) 0.6 %; Lymphocytes # (auto) 1.45 K/uL (1.20-3.40); Lymphocytes % (auto) 14.7 %; Mean Corpuscular Hemoglobin 31.5 pg (25.0-34.0); Mean Corpuscular Hgb Conc 36.3 g/dL (32.0-36.0); Monocytes # (auto) 0.96 K/uL (0.11-0.59); Monocytes % (auto) 9.7 %; Neutrophils # (auto) 7.34 K/uL (1.40-6.50); Neutrophils % (auto) 74.2 %; Platelet Count 184 K/uL (130-400); RDW Coefficient of Variation 12.6 % (11.5-14.5); RDW Standard Deviation 39.8 fL (36.4-46.3); White Blood Count 9.89 K/ul (4.8-10.8)
[2022-11-19 12:44] LABS: Albumin Globulin Ratio 1.3 (0.9-2); BUN Creatinine Ratio 17.9 (10-20); Bilirubin,Total 2.7 mg/dl (0.2-1.0); Calcium 9.3 mg/dl (8.6-10.3); Creatinine Clr Calc Pharmacy 96.5 ml/min; Est GFR (African American) 103.5 ml/min; Est GFR (Non-African American) 89.3 ml/min; Globulin 3.1 gm/dl (2.5-4.0); Potassium 3.4 mmol/L (3.5-5.1); Total Protein 7.1 gm/dl (6.0-8.3)
[2022-11-19] MEDS ORDERED: ONDANSETRON INJ 2 MG/ML 2 ML VIAL IV PRN (13:41)
[2022-11-19] MEDS ORDERED: ACETAMINOPHEN 325 MG TAB PO PRN (13:41)
[2022-11-19] MEDS ORDERED: ENOXAPARIN INJ 40 MG/0.4 ML SYR SQ SCH (13:45)
[2022-11-19] MEDS ORDERED: cefTRIAXone SODIUM 2,000 MG/70 ML BAG IV SCH (14:00)
[2022-11-19 14:08] LABS: Appearance Urine Clear (Clear); Bilirubin Urine Negative (Negative); Blood Urine Negative (Negative); Color Urine Yellow; Glucose Urine UA Negative (Negative); Ketones Urine Negative (Negative); Leukocyte Esterase Urine Negative (Negative); Nitrite Urine Negative (Negative); Protein Urine Negative (Negative); Specific Gravity Urine 1.012 (1.000-1.030); Urobilinogen Urine Negative (Negative)
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
--- NOTE | 2022-11-19 15:04 | Ultrasound Report ---
RIGHT UPPER EXTREMITY VENOUS DOPPLER ULTRASOUND CLINICAL HISTORY: Right upper extremity erythema in the AC area COMPARISON STUDY: No previous studies for comparison. TECHNIQUE: Sonography of the venous system of the right upper extremity was performed. FINDINGS: There is no deep venous thrombus within the right upper extremity. Note is made of occlusiv e superficial thrombus within a vein of the right antecubital fossa which corresponds to the painful lump. This vein appears to be a branch of the right basilic vein. Superficial thrombus extends for 5. 2 cm. IMPRESSION: 1. Occlusive superficial thrombus within a vein of the right antecubital fossa which extends for 5.2 cm. This corresponds to the painful lump. 2. No deep venous thrombus within the right upper extremity. ACT 112: Negative or not required by law. Electronically signed by: Elmo Wells M.D. 11/19/2022 3:01 PM
[2022-11-19] MEDS: D5W AND NSS 1,000 ML IV SCH (16:38)
[2022-11-19] MEDS: POTASSIUM CHLORIDE / WTR 10 MEQ/100 ML PLCT IV SCH ×2 (16:38→17:39)
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
[2022-11-19] MEDS: hydrALAZINE HCL 20 MG/ML VIAL IV PRN (21:18)
[2022-11-20] MEDS: D5W AND NSS 1,000 ML IV SCH ×3 (00:09→20:39)
[2022-11-20 06:11] LABS: Basophils # (auto) 0.02 K/uL (0.00-0.20); Basophils % (auto) 0.3 %; Eosinophils # (auto) 0.11 K/uL (0.00-0.50); Eosinophils % (auto) 1.6 %; Hematocrit (blood only) 37.4 % (42.0-52.0); Hemoglobin 13.4 g/dl (14.0-18.0); Immature Granulocytes # (auto) 0.03 K/uL (0.01-0.20); Immature Granulocytes % (auto) 0.4 %; Lymphocytes # (auto) 2.66 K/uL (1.20-3.40); Lymphocytes % (auto) 38.9 %; Mean Corpuscular Hemoglobin 31.5 pg (25.0-34.0); Mean Corpuscular Hgb Conc 35.8 g/dL (32.0-36.0); Mean Platelet Volume 9.7 fL (9.4-12.4); Monocytes # (auto) 0.84 K/uL (0.11-0.59); Monocytes % (auto) 12.3 %; Neutrophils # (auto) 3.17 K/uL (1.40-6.50); Neutrophils % (auto) 46.5 %; Platelet Count 164 K/uL (130-400); RDW Coefficient of Variation 12.6 % (11.5-14.5); RDW Standard Deviation 40.1 fL (36.4-46.3); Red Blood Count 4.25 M/uL (4.70-6.10); White Blood Count 6.83 K/ul (4.8-10.8)
[2022-11-20 06:28] LABS: Albumin Globulin Ratio 1.4 (0.9-2); Albumin Level 3.6 gm/dl (3.4-5.0); BUN Creatinine Ratio 13.6 (10-20); Bilirubin,Total 2.1 mg/dl (0.2-1.0); Calcium 8.6 mg/dl (8.6-10.3); Creatinine Clr Calc Pharmacy 92.1 ml/min; Est GFR (African American) 101.6 ml/min; Est GFR (Non-African American) 87.6 ml/min; Globulin 2.6 gm/dl (2.5-4.0); Potassium 3.6 mmol/L (3.5-5.1); Total Protein 6.2 gm/dl (6.0-8.3)
[2022-11-20] MEDS: hydrALAZINE HCL 20 MG/ML VIAL IV PRN (07:42)
[2022-11-20] MEDS ORDERED: ACETAMINOPHEN 1,000 MG/100 ML VIAL IV PRN (10:10)
[2022-11-20] MEDS ORDERED: hydrALAZINE HCL 20 MG/ML VIAL IV PRN (10:14)
[2022-11-20] MEDS: ENALAPRILAT 1.25 MG in DEXTROSE 5% 25 ML IV SCH ×2 (12:06→18:26)
[2022-11-20] MEDS ORDERED: amLODIPine BESYLATE 5 MG TAB PO ONE (12:49)
--- NOTE | 2022-11-20 15:37 | Surgery Progress Note ---
Date of Service November 20, 2022 Assessment & Plan (1) Partial small bowel obstruction: Plan: Again is passing flatus and with symptom resolution. Given how distal the obstruction is located, we discussed slow advancement of diet. OK to start clear liquids today. Admission and Anticipated Discharge Date Admission Date: November 19, 2022 Subjective Feels better. Passed a large amount of flatus last night. No abdominal pain. Physical Exam Respiratory: normal respiratory effort, lungs clear to auscultation Cardiovascular: RRR, no murmur, no edema Gastrointestinal (Abdomen): Inspection/Auscultation: abdomen normal to inspection and normal bowel sounds; abdomen not distended Percussion/Palpation: abdomen soft; abdomen nontender Neurologic: awake; no focal motor deficits Results & Data Vital Signs (Past 12 Hours) Vital Signs Temp Pulse Resp BP Pulse Ox O2 Del Method 11/20/22 15:11 36.5 C 51 L 16 168/69 H 97 Room Air 11/20/22 12:42 177/73 H 11/20/22 09:33 171/70 H 11/20/22 07:43 36.8 C 55 L 16 175/80 H 94 Room Air
[2022-11-20] MEDS: ENOXAPARIN INJ 40 MG/0.4 ML SYR SQ SCH (15:54)
[2022-11-20] MEDS ORDERED: cefTRIAXone SODIUM 2,000 MG in DEXTROSE 5% 50 ML IV SCH (16:00)
--- NOTE | 2022-11-20 18:16 | Hospitalist Progress Note ---
Date of Service November 20, 2022 Assessment & Plan (1) Partial small bowel obstruction: (2) Nausea & vomiting: (3) Acute hypokalemia: (4) Hernia, inguinal, left: (5) Skin lesion of right upper extremity: (6) HTN (hypertension): Plan Per admitting service notes with addendum: SMALL BOWEL OBSTRUCTION: -repeat CT abd: Findings consistent with a persistent partial small bowel obstruction. Small bowel dilatation mildly decreased when compared to CT of November 14, 2022. Moderately distended, fluid-filled stomach -VSS except increase in his BP -abd exam was unremarkable -pt does not want a NG tube at this time -NPO ---- D5NS: 100cc/hr for maintenance -Surgery consult again -zofran prn for nausea - will advance diet as the symptoms improve 11/20 No abdominal pain, nausea Evaluated by general surgery, okay with trial of clear liquids today Continue to monitor closely RIGHT ANTECUBITAL FOSSA SUPERFICIAL THROMBUS -pt was started on Keflex for cellulitis on discharge Doppler ultrasound: 1. Occlusive superficial thrombus within a vein of the right antecubital fossa which extends for 5.2 cm. This corresponds to the painful lump. 2. No deep venous thrombus within the right upper extremity. -Discussed with Dr. Noble, hematology Observe for progression of symptoms Repeat Doppler ultrasound in 5 days HTN/HLD: Blood pressure elevated Amlodipine 5 mg p.o. given On enalaprilat 1.25 mg every 6 hours Usual lisinopril/HCTZ on hold secondary to small bowel obstruction As needed hydralazine Diet: Clear liquid diet DVT PPx: Lovenox Admission and Anticipated Discharge Date Admission Date: November 19, 2022 Subjective Follow-up for for small bowel obstruction, etc. Seen resting in bed, doing sudoku In good spirits States he feels improved today Denies abdominal pain, nausea No pain over the antecubital fossa No other new symptoms Review of Systems Review of Systems: all noted and negative except for above Physical Exam Physical Exam: General- oriented x 3, not in distress, speaks in sentences with no effort or accessory muscle use Eyes- anicteric Neck- no JVD Lungs- clear breath sounds bilaterally, no rales/wheezes Heart- normal rate, regular rhythm; no murmurs Abdomen- normal bowel sounds, nondistended, soft, nontender Extremities- no pretibial edema, no calf tenderness Right antecubital fossa-no erythema, pain, tenderness Neuro- alert, oriented x 3; no gross focal neurologic deficits Skin- warm & dry Results & Data Results & Data Vital Signs (Past 12 Hours) Vital Signs Temp Pulse Resp BP Pulse Ox O2 Del Method 11/20/22 15:11 36.5 C 51 L 16 168/69 H 97 Room Air 11/20/22 12:42 177/73 H 11/20/22 09:33 171/70 H 11/20/22 07:43 36.8 C 55 L 16 175/80 H 94 Room Air all noted and reviewed including below (6) HTN (hypertension) Hypertension type: unspecified Qualified Code(s): I10 - Essential (primary) hypertension
[2022-11-20] MEDS ORDERED: Nursing to Pharmacy Communication SCH (21:00)
[2022-11-21] MEDS: ENALAPRILAT 1.25 MG in DEXTROSE 5% 25 ML IV SCH ×2 (00:10→06:04)
--- NOTE | 2022-11-21 09:13 | Surgery Progress Note ---
Date of Service November 21, 2022 Assessment & Plan (1) Partial small bowel obstruction: Plan: Patient sitting up in bed Currently Reports he feels great. Reports that the previous epigastric pain has again, resolved and resolved once he reached the ED and continues to tolerate clears, without leukocytosis. Will perform a SBFT today. Hold on clears until after this exam since the patient will have to have contrast. Continue IVF for now. Ambulate Admission and Anticipated Discharge Date Admission Date: November 19, 2022 Supervising Physician Co-Signing Physician Notes I have seen and examined this patient as well as devised this plan. Subjective Patient sitting up in bed was discharged 11/18/22 and was tolerating a clear liquid diet and had mash potato's roast beef prior to leaving. When he got home he ate two peanut butter cookies. Monday morning woke up and had coffee at which point he reports that he started vomiting green, which prompted him to come back to the ER. Currently Reports he feels great Denies nausea/vomiting, tolerating clears for breakfast Last BM Monday, is passing flatus Denies fever, chills , SOB , CP Review of Systems Constitutional: no fever, no chills and no sweats Cardiovascular: no chest pain Gastrointestinal: no abdominal pain, no nausea and no vomiting Physical Exam Constitutional: well developed, cooperative and comfortable; no acute distress Respiratory: normal respiratory effort and able to speak in complete sentences; no respiratory distress Cardiovascular: Rate/Rhythm: regular rate Gastrointestinal (Abdomen): Inspection/Auscultation: abdomen normal to inspection; abdomen not distended Percussion/Palpation: abdomen soft; abdomen nontender and no guarding Neurologic: moves all extremities and awake; no focal motor deficits and not confused Results & Data Vital Signs (Past 12 Hours) Vital Signs Temp Pulse Resp BP Pulse Ox O2 Del Method 11/21/22 07:26 97.9 F 62 16 159/74 H 98 Room Air 11/21/22 06:06 166/81 H 11/21/22 00:09 172/77 H 11/20/22 22:21 97.9 F 55 L 18 165/76 H 97 Room Air PG Care Time/CCT Total # of Minutes Spent Total Time Spent with Patient: Total time spent is greater than 50% in coordination of care (as documented) at patient's floor/unit and/or counseling patient: Coding Level of Care Code 62121 SUB INP/OBS CARE 04/20MIN Diagnoses Partial small bowel obstruction K56.600
[2022-11-21] MEDS: lisinopril 20 MG TAB PO SCH (11:25)
[2022-11-21] MEDS: amLODIPine BESYLATE 5 MG TAB PO SCH (11:26)
[2022-11-21] MEDS: D5W AND NSS 1,000 ML IV SCH (14:18)
--- NOTE | 2022-11-21 15:54 | Fluoroscopy Report ---
[place] small bowel follow through CLINICAL HISTORY: persistent partial SBO after tolerating diet COMPARISON STUDY: CT of the abdomen and pelvis November 19, 2022. TECHNIQUE: Initially, a chuck boner KUB was obtained. A small bowel follow-through was performed following oral ingestion of dilute Optiray 320. Overhead radiographs were obtained. FINDINGS: Floor Broker KUB demonstrates multiple loops of mildly dilated small bowel. This was confirmed fol lowing ingestion of dilute Optiray. No transition point was identified. However, the mid to distal sm all bowel was relatively decompressed. Therefore, the findings suggest a partial small bowel obstruct ion. Transit time to the cecum was within normal limits, at 2 hours. Small bowel mucosal detail is di minished utilizing this technique. No mass is identified. Left inguinal hernia containing a portion o f the colon is again noted. IMPRESSION: Mild dilatation of the proximal small bowel with relatively decompressed mid to distal s mall bowel. No transition point identified however the findings suggest a partial small bowel obstruc tion. ACT 112: Negative or not required by law. Electronically signed by: Elmo Wells M.D. 11/21/2022 3:52 PM
[2022-11-21] MEDS: ENOXAPARIN INJ 40 MG/0.4 ML SYR SQ SCH (17:02)
--- NOTE | 2022-11-21 18:47 | Hospitalist Progress Note ---
Date of Service November 21, 2022 Assessment & Plan (1) Partial small bowel obstruction: (2) Nausea & vomiting: (3) Acute hypokalemia: (4) Hernia, inguinal, left: (5) Skin lesion of right upper extremity: (6) HTN (hypertension): Plan Per admitting service notes with addendum: SMALL BOWEL OBSTRUCTION: -repeat CT abd: Findings consistent with a persistent partial small bowel obstruction. Small bowel dilatation mildly decreased when compared to CT of November 14, 2022. Moderately distended, fluid-filled stomach -VSS except increase in his BP -abd exam was unremarkable -pt does not want a NG tube at this time -NPO ---- D5NS: 100cc/hr for maintenance -Surgery consult again -zofran prn for nausea - will advance diet as the symptoms improve 11/21 No abdominal pain, nausea Tolerating clear liquids No BM yet Positive flatus Small bowel follow-through: Mild dilatation of the proximal small bowel with relatively decompressed mid to distal small bowel. No transition point identified however the findings suggest a partial small bowel obstruction. General surgery on board RIGHT ANTECUBITAL FOSSA SUPERFICIAL THROMBUS -pt was started on Keflex for cellulitis on discharge Doppler ultrasound: 1. Occlusive superficial thrombus within a vein of the right antecubital fossa which extends for 5.2 cm. This corresponds to the painful lump. 2. No deep venous thrombus within the right upper extremity. -Discussed with Dr. Noble, hematology Observe for progression of symptoms Repeat Doppler ultrasound in 5 days Improving HTN/HLD: Blood pressure elevated Amlodipine 5 mg p.o. daily started Usual lisinopril 20 mg p.o. daily resume Usual HCTZ on hold As needed hydralazine Diet: Clear liquid diet DVT PPx: Lovenox Disposition Discharge to home when cleared by general surgery Admission and Anticipated Discharge Date Admission Date: November 19, 2022 Subjective Follow-up for partial small bowel obstruction, etc. Seen resting in bed, comfortable, not in distress In good spirits States he continues to feel improved overall Tolerating clear liquids since yesterday No BM, positive flatus No nausea or vomiting, no abdominal pain No fevers or chills Denies pain in the right antecubital fossa Review of Systems Review of Systems: all noted and negative except for above Physical Exam Physical Exam: General- oriented x 3, not in distress, speaks in sentences with no effort or accessory muscle use Eyes- anicteric Neck- no JVD Lungs- clear breath sounds bilaterally, no crackles or wheezing Heart- normal rate, regular rhythm; no murmurs Abdomen- normal bowel sounds, nondistended, soft, nontender Extremities- no pretibial edema, no calf tenderness Neuro- alert, oriented x 3; no gross focal neurologic deficits Skin- warm & dry Results & Data Results & Data Vital Signs (Past 12 Hours) Vital Signs Temp Pulse Resp BP Pulse Ox O2 Del Method 11/21/22 07:26 36.6 C 62 16 159/74 H 98 Room Air all noted and reviewed including below (6) HTN (hypertension) Hypertension type: unspecified Qualified Code(s): I10 - Essential (primary) hypertension
[2022-11-22 06:55] LABS: Basophils # (auto) 0.03 K/uL (0.00-0.20); Basophils % (auto) 0.4 %; Eosinophils # (auto) 0.12 K/uL (0.00-0.50); Eosinophils % (auto) 1.7 %; Hematocrit (blood only) 36.7 % (42.0-52.0); Immature Granulocytes # (auto) 0.03 K/uL (0.01-0.20); Immature Granulocytes % (auto) 0.4 %; Lymphocytes # (auto) 2.48 K/uL (1.20-3.40); Lymphocytes % (auto) 35.6 %; Mean Corpuscular Hemoglobin 31.4 pg (25.0-34.0); Mean Corpuscular Hgb Conc 35.4 g/dL (32.0-36.0); Mean Corpuscular Volume 88.6 fL (80.0-100.0); Mean Platelet Volume 9.7 fL (9.4-12.4); Monocytes # (auto) 0.68 K/uL (0.11-0.59); Monocytes % (auto) 9.8 %; Neutrophils # (auto) 3.63 K/uL (1.40-6.50); Neutrophils % (auto) 52.1 %; Platelet Count 187 K/uL (130-400); RDW Coefficient of Variation 12.7 % (11.5-14.5); RDW Standard Deviation 41.1 fL (36.4-46.3); Red Blood Count 4.14 M/uL (4.70-6.10); White Blood Count 6.97 K/ul (4.8-10.8)
[2022-11-22 07:14] LABS: Albumin Globulin Ratio 1.5 (0.9-2); Albumin Level 3.5 gm/dl (3.4-5.0); Bilirubin,Total 2.1 mg/dl (0.2-1.0); Calcium 8.7 mg/dl (8.6-10.3); Creatinine Clr Calc Pharmacy 94.3 ml/min; Est GFR (African American) 102.5 ml/min; Est GFR (Non-African American) 88.5 ml/min; Globulin 2.4 gm/dl (2.5-4.0); Potassium 3.6 mmol/L (3.5-5.1); Total Protein 5.9 gm/dl (6.0-8.3)
[2022-11-22] MEDS: amLODIPine BESYLATE 5 MG TAB PO SCH (08:07)
[2022-11-22] MEDS: lisinopril 20 MG TAB PO SCH (08:07)
[2022-11-22 09:54] LABS: Adenovirus F 40/41 PCR Not Detected (NotDetected); Astrovirus PCR Not Detected (NotDetected); Campylobacter PCR Not Detected (NotDetected); Cryptosporidium PCR Not Detected (NotDetected); Cyclospora cayetanensis PCR Not Detected (NotDetected); Entamoeba histolytica PCR Not Detected (NotDetected); Enteroaggregative E.coli(EAEC) Not Detected (NotDetected); Enteropathogenic E.coli (EPEC) Not Detected (NotDetected); Enterotoxigenic E.coli (ETEC) Not Detected (NotDetected); Giardia lamblia PCR Not Detected (NotDetected); Norovirus GI/GII PCR Not Detected (NotDetected); Plesiomonas shigelloides PCR Not Detected (NotDetected); Rotavirus A PCR Not Detected (NotDetected); Salmonella PCR Not Detected (NotDetected); Sapovirus PCR Not Detected (NotDetected); Shiga-like Toxin E.coli (STEC) Not Detected (NotDetected); Shigella/Enteroinvasive E.coli Not Detected (NotDetected); Vibrio cholerae PCR Not Detected (NotDetected); Vibrio species PCR Not Detected (NotDetected); Yersinia enterocolitica PCR Not Detected (NotDetected)
--- NOTE | 2022-11-22 12:21 | Hospitalist Progress Note ---
Date of Service November 22, 2022 Assessment & Plan (1) Partial small bowel obstruction: (2) Nausea & vomiting: (3) Acute hypokalemia: (4) Hernia, inguinal, left: (5) Skin lesion of right upper extremity: (6) HTN (hypertension): Plan Per admitting service notes with addendum: SMALL BOWEL OBSTRUCTION: -repeat CT abd: Findings consistent with a persistent partial small bowel obstruction. Small bowel dilatation mildly decreased when compared to CT of November 14, 2022. Moderately distended, fluid-filled stomach sx improving pt with SBFT yesterday which revealed Mild dilatation of the proximal small bowel with relatively decompressed mid to distal small bowel. No transition point identified however the findings suggest a partial small bowel obstruction. Pt tolerating a full liquid diet thus far, no recurrence of symptoms RIGHT ANTECUBITAL FOSSA SUPERFICIAL THROMBUS pt was started on Keflex for cellulitis on discharge --Doppler ultrasound:. Occlusive superficial thrombus within a vein of the right antecubital fossa which extends for 5.2 cm. This corresponds to the painful lump.. No deep venous thrombus within the right upper extremity. -Discussed with Dr. Noble, hematology Observe for progression of symptoms Repeat Doppler ultrasound tomorrow Sx improving HTN/HLD: Chronic, BP not controlled Blood pressure elevated Amlodipine 5 mg p.o. daily started Usual lisinopril 20 mg p.o. daily resume Usual HCTZ on hold As needed hydralazine Bp improving 154/71, but not yet optimal, will continue to monitor on new regimen statin on hold while admitted PCP: Dr. Holm Diet: Full Liquid DVT PPx: Lovenox Disposition Discharge to home when cleared by general surgery Pt was seen and examined in collaboration with Dr. Martinez, please see addendum Admission and Anticipated Discharge Date Admission Date: November 19, 2022 Supervising Physician Co-Signing Physician Notes Attending Addendum: care coordinated with HILDA Yee please refer to her notes for full details, I agree with her notes patient seen and examined, records reviewed by myself as well diagnoses and plan of care as per HILDA Yee's notes Joseph Martinez MD Subjective Patient was seen and examined in room 318-1. Follow up SBO. He feels great this morning. He is tolerating a full liquid diet thus far. Denies f/c/s, chest pain, sob, n/v/d, abd pain. He is passing flatus. Having liquid Bm. SBFT done yesterday Review of Systems Review of Systems: All systems reviewed & are unremarkable except as noted in HPI & below Physical Exam Physical Exam: Gen: WD/WN, NAD, A&O x3 HEENT: Normocephalic, atraumatic, conjunctivae moist, sclerae anicteric, mucous membranes moist. Lung: Clear to Auscultation bilaterally, no wheezes/rales/rhonchi Heart: Regular rate, regular rhythm, no murmurs, rubs, or gallops Abdomen: Soft, NT, ND +BS x 4 Extremities: No edema Skin: Warm, no rash, negative turgor. Results & Data Results & Data Vital Signs (Past 12 Hours) Vital Signs Temp Pulse Resp BP Pulse Ox O2 Del Method 11/22/22 08:05 66 11/22/22 07:04 36.5 C 53 L 16 154/71 H 94 Room Air Laboratory Results Short CBC 11/22/22 Range/Units 06:04 WBC 6.97 (4.8-10.8) K/ul Hgb 13.0 L (14.0-18.0) g/dl Hct 36.7 L (42.0-52.0) % Plt Count 187 (130-400) K/uL BMP 11/22/22 06:04 Sodium 137 Potassium 3.6 Chloride 107 Carbon Dioxide 24 BUN 12 Creatinine 0.86 Glucose 84 Calcium 8.7 Liver Function 11/22/22 Range/Units 06:04 Total Bilirubin 2.1 H (0.2-1.0) mg/dl AST 27 (13-39) U/L ALT 49 (7-52) U/L Alkaline Phosphatase 64 (34-104) U/L Albumin 3.5 (3.4-5.0) gm/dl Diagnostic Findings SBFT: Mild dilatation of the proximal small bowel with relatively decompressed mid to distal small bowel. No transition point identified however the findings suggest a partial small bowel obstruction. Medications Administered Current Inpatient Medications Acetaminophen (Acetaminophen 325 Mg Tab) 650 mg PO Q4H PRN PRN Reason: pain/fever Stop: 12/19/22 13:40 Amlodipine Besylate (Amlodipine Besylate 5 Mg Tab) 5 mg PO QAM JALYN Stop: 12/21/22 09:29 Last Admin: 11/22/22 08:07 Dose: 5 mg Enoxaparin Sodium (Enoxaparin Inj 40 Mg/0.4 Ml Syr) 40 mg SQ Q24H [facility] Stop: 12/20/22 15:59 Last Admin: 11/21/22 17:02 Dose: Not Given Hydralazine HCl (Hydralazine Hcl 20 Mg/Ml Vial) 5 mg IV Q6H PRN PRN Reason: Hypertension Stop: 12/19/22 20:44 Acetaminophen ([facility]) 1,000 mg in 100 mls @ 400 mls/hr IV Q8H PRN PRN Reason: merchant/fever Stop: 11/23/22 10:09 Last Infusion: 11/20/22 11:07 Dose: Infused Lisinopril (Lisinopril 20 Mg Tab) 20 mg PO QAM [facility] Stop: 12/21/22 09:29 Last Admin: 11/22/22 08:07 Dose: 20 mg Ondansetron HCl (Ondansetron Inj 2 Mg/Ml 2 Ml Vial) 4 mg IV Q6H PRN PRN Reason: Nausea Stop: 12/19/22 13:40 (6) HTN (hypertension) Hypertension type: unspecified Qualified Code(s): I10 - Essential (primary) hypertension
--- NOTE | 2022-11-22 14:55 | Discharge Summary ---
Discharge Summary Date of Service November 22, 2022 Notes For Next Care Provider Patient was admitted for partial small bowel obstruction. This was a readmission. He was seen and evaluated by general surgery and treated conservatively. He underwent a small bowel follow-through x-ray which revealed mild dilatation of the proximal small bowel with relatively decompressed mid to distal small bowel with no transition point identified. His diet is being upgraded very slowly. He will be discharged on full liquid diet for 5 days, then upgrade to a soft diet for 5 days and then transition to a low fiber diet. Hospital stay was complicated by an occlusive superficial thrombus within the vein of the right antecubital fossa which extends for 5.2 cm his symptoms have since resolved. It is recommended he had a follow-up ultrasound study as outpatient. Medication Changes From Visit Amlodipine 5 mg daily added to regimen secondary to high blood pressure. Admission HPI Per Admitting Provider Pt is a 67 y/o M with hx of HTN, HLD, AAA, recent hospital admission for Small bowel obstruction came into the ER with onset of severe nausea with vomiting and upper abd pain. Pt was discharged from the hospital yesterday evening: he had an NG tube initially then his diet advanced to clear liquid diet and pt had solid food prior to leaving the hospital. He felt fine on discharge but today morning pt started to have Nausea, vomiting and abd pain. At bedside: complained of nausea. Denied any fever, SOB, CP, or diarrhea. Pt was discharged on Keflex for R UE cellulitis near the antecubital area. Admission Exam Per Admitting Provider General:.NAD, well developed, well nourished, average body habitus HEENT:.Normocephalic and atraumatic, Normal Conjunctiva, EOMI, Sclera is non- icteric Lungs:.No signs of respiratory distress, CTA, no wheezing or crackles Heart:.Normal S1, S2, no murmur Abdominal:.ND, Soft, NT, normal BS MSK:.R UE near the AC area: small area of erythema with palpable nodule near the vein and mild warmth to touch, TTP Psych:.AAOx3, normal affect Principal Dx & Hospital Course #1 = Principal Diagnosis (1) Partial small bowel obstruction: (2) Nausea & vomiting: (3) Acute hypokalemia: (4) Hernia, inguinal, left: (5) Skin lesion of right upper extremity: (6) HTN (hypertension): Plan Per admitting service notes with addendum: SMALL BOWEL OBSTRUCTION: -repeat CT abd: Findings consistent with a persistent partial small bowel obstruction. Small bowel dilatation mildly decreased when compared to CT of November 14, 2022. Moderately distended, fluid-filled stomach sx improving pt with SBFT yesterday 11/21. which revealed Mild dilatation of the proximal small bowel with relatively decompressed mid to distal small bowel. No transition point identified however the findings suggest a partial small bowel obstruction. Pt tolerating a full liquid diet thus far, no recurrence of symptoms Patient to be discharged home on a full liquid diet for 5 days, soft diet for 5 days and then transition to low fiber diet He will follow-up with general surgery in 2 weeks RIGHT ANTECUBITAL FOSSA SUPERFICIAL THROMBUS pt was started on Keflex for cellulitis on discharge --Doppler ultrasound on admission:. Occlusive superficial thrombus within a vein of the right antecubital fossa which extends for 5.2 cm. This corresponds to the painful lump.. No deep venous thrombus within the right upper extremity. -Discussed with Dr. Noble, hematology Observe for progression of symptoms which have since resolved Recommend repeat follow-up ultrasound as outpatient HTN/HLD: Chronic, BP not controlled Blood pressure elevated Amlodipine 5 mg p.o. daily started Usual lisinopril 20 mg p.o. daily resume Usual HCTZ on hold Bp improving 154/71, but not yet optimal, will continue to monitor on new regimen and he will keep a log of blood pressure as outpatient statin on hold while admitted PCP: Dr. Holm Diet: Full Liquid DVT PPx: Lovenox Disposition Discharge to home today Pt was seen and examined in collaboration with Dr. Martinez, please see addendum Discharge Exam Gen: WD/WN, NAD, A&O x3 HEENT: Normocephalic, atraumatic, conjunctivae moist, sclerae anicteric, mucous membranes moist. Lung: Clear to Auscultation bilaterally, no wheezes/rales/rhonchi Heart: Regular rate, regular rhythm, no murmurs, rubs, or gallops Abdomen: Soft, NT, ND +BS x 4 Extremities: No edema Skin: Warm, no rash, negative turgor. Updated Medication List Medication Instructions Recorded Confirmed Type aspirin 81 mg tablet,delayed 81 mg PO QAM 10/21/18 11/19/22 History release (Marta Low Dose Aspirin) atorvastatin 40 mg tablet 40 mg PO QAM 09/15/19 11/19/22 History lisinopril 20 1 tab PO QAM 09/15/19 11/19/22 History mg-hydrochlorothiazide 25 mg tablet aspirin 227 mg-acetaminophen 194 1 tab PO Q6H PRN Headache 09/01/20 11/19/22 History mg-caffeine 33 mg tablet (Vanquish) amlodipine 5 mg tablet (Norvasc) 5 mg PO QAM #30 tabs 11/22/22 Rx Hospital Stay Data Consultations 11/19/22 13:31 ED Decision to Admit Stat 11/19/22 13:41 Consult General Surgery Routine Diagnostic Imagining Performed Abdomen/Pelvis CT 11/19/22 11:24 CT OF THE ABDOMEN AND PELVIS WITHOUT CONTRAST CLINICAL HISTORY: Abdominal pain/vomiting; recent SBO. COMPARISON STUDY: CT of the abdomen and pelvis November 14, 2022 and KUB November 15, 2022. TECHNIQUE: Axial images of the abdomen and pelvis were obtained without IV contrast. Images were reviewed in the axial, sagittal, and coronal planes. Aut omated exposure control was utilized for the study. A dose lowering technique was utilized adhering to the principles of ALARA. FINDINGS: Lung bases are unremarkable. No pneumatosis, free air or portal venous gas is present. Evaluation of the abdomen and pelvis is suboptimal on this unenhanced exam. Unenhanced images of the liver, spleen, adrenal glands, kidneys and pancreas are unremarkable. There is no biliary or pancreatic ductal dilatation. The stomach is moderately distended and fluid-filled. The proximal to mid small bowel is moderately dilated and fluid-filled. Small bowel dilata tion is slightly decreased when compared to CT of November 14, 2022. Mesenteric stranding has improved. Transition point is not well visualized on this unenhanced study. A left inguinal hernia contains a portion of the distal descending colon and proximal sigmoid colon and trace fluid. This does not result in a bowel obstruction. There is extensive aortoiliac atherosclerotic plaque. There is also extensive plaque of the branch vessels. A 3.6 cm infrarenal abdominal aortic aneurysmal is noted. IMPRESSION: 1. Findings consistent with a persistent partial small bowel obstruction. Small bowel dilatation mildly decreased when compared to CT of November 14, 2022. Moderately distended, fluid-filled stomach. 2. Left inguinal hernia which contains a portion of the colon. This does not result in a bowel obstruction. 3. Extensive atherosclerotic plaque of the abdominal aorta and branch vessels. 3.6 cm infrarenal abdominal aortic aneurysm. ACT 112: Negative or not required by law. Electronically signed by: Elmo Wells M.D. 11/19/2022 12:38 PM Venous Doppler Study 11/19/22 14:02 RIGHT UPPER EXTREMITY VENOUS DOPPLER ULTRASOUND CLINICAL HISTORY: Right upper extremity erythema in the AC area COMPARISON STUDY: No previous studies for comparison. TECHNIQUE: Sonography of the venous system of the right upper extremity was performed. FINDINGS: There is no deep venous thrombus within the right upper extremity. Note is made of occlusive superficial thrombus within a vein of the right antecubital fossa which corresponds to the painful lump. This vein appears to be a branch of the right basilic vein. Superficial thrombus extends for 5.2 cm. IMPRESSION: 1. Occlusive superficial thrombus within a vein of the right antecubital fossa which extends for 5.2 cm. This corresponds to the painful lump. 2. No deep venous thrombus within the right upper extremity. ACT 112: Negative or not required by law. Electronically signed by: Elmo Wells M.D. 11/19/2022 3:01 PM Small Bowel X-Ray 11/21/22 10:59 [place] small bowel follow through CLINICAL HISTORY: persistent partial SBO after tolerating diet COMPARISON STUDY: CT of the abdomen and pelvis November 19, 2022. TECHNIQUE: Initially, a commercial banker KUB was obtained. A small bowel follow-through was performed following oral ingestion of dilute Optiray 320. Overhead radiographs were obtained. FINDINGS: Supervisor Beam Department KUB demonstrates multiple loops of mildly dilated small bowel. This was confirmed following ingestion of dilute Optiray. No transition point was identified. However, the mid to distal small bowel was relatively decompressed. Therefore, the findings suggest a partial small bowel obstruction. Transit time to the cecum was within normal limits, at 2 hours. Small bowel mucosal detail is diminished utilizing this technique. No mass is identified. Left inguinal hernia containing a portion of the colon is again noted. IMPRESSION: Mild dilatation of the proximal small bowel with relatively decompressed mid to distal small bowel. No transition point identified however the findings suggest a partial small bowel obstruction. ACT 112: Negative or not required by law. Electronically signed by: Elmo Wells M.D. 11/21/2022 3:52 PM Pending Results Patient Have Any Pending Studies at Discharge: No Discharge Instructions Given to Patient (Per Discharging Provider) MEDICATION CHANGES: Start amlodipine 5 mg daily, next dose 11/23/2022. Continue all other medications as prescribed. RECOMMENDATIONS FOR FOLLOW-UP: Please follow-up with primary care provider as scheduled. You need to ask your primary care provider to schedule a ultrasound of your right arm to rule out superficial vein blood clot. Continue on a full liquid diet for 3-4 days from discharge. Then progress to a soft diet where you should stay at for another 5 days. Then you may advance to low fiber thereafter for the next few weeks. Please keep a log of your blood pressures. You were started on a new blood pressure medication. Goal blood pressure for you is less than 140/90. Take this log with you to your next appointment with Primary Care. OTHER INSTRUCTIONS: Seek medical attention if you have: * temperature above 101 * chest pain or trouble breathing * abdominal pain, nausea, vomiting * diarrhea, dark stools or bloody stools * any unanswered questions or concerns Call 911 if symptoms are severe. Please take good care of yourself. It has been a pleasure taking care of you. Please take care of yourself. If you have any questions regarding your recent hospitalization please contact [facility] and [facility] @ [phone]. Total Time Total Time Spent Total Time Spent (In Minutes): 35 minutes Supervising Physician Co-Signing Physician Notes Attending Addendum: care coordinated with HILDA Yee please refer to her notes for full details, I agree with her notes patient seen and examined, records reviewed by myself as well diagnoses and plan of care as per HILDA Yee's notes Joseph Martinez MD
== END 2022-11-22 16:20 | disposition home or self-care (01) | DRG 389 ==
LOC: ED 10:52 → SUATTDRO 13:42 → 3E 13:42